=== PATIENT | male | born 1965 | race Caucasian/White ===

== ENCOUNTER 2017-09-11 21:13 | Emergency (ER) | payer OTHER ==
[~2017-09-11] VITALS: Ht 167.6 cm; Wt 105.0 kg
[~2017-09-11 21:13] MED LIST: AMLO5 PO; ASPI325 PO; ASPI81CH PO; ATOR40TA PO; Augmentin 875-1 EACH PO; Bactrim Ds Tab1 EACH PO; CHOL10002; CLIN150 PO; CLIN300 PO; Cleocin HCl300 MG PO; Clindamycin HC300 MG PO; DOCU100 PO; Florastor250 MG PO; GABA100 PO; GABA300 PO; GABA600 PO; HUMULIN; HYDR1TAB94 PO; INSDET100 SC; INSUASPI SC; INSUL100I; INSULANPEN SC; Keflex500 MG PO; LANTUS SC; LEVO750 PO; LOSA25 PO; LOSARTAN PO; LOSARTAN-HCTZ1 EAC1 PO; LOSHYD PO; LOSHYD100 PO; LOVA20; LOVA20 PO; MELO7.5 PO; METF500 PO; METF500C PO; METFORMIN PO; METO25ER PO; NAPR500 PO; OXYACE5T PO; OXYC10ER PO; SACC250C; SIMVASTATIN PO; TRAM50 PO
[2017-09-11 22:11] LABS: BASOPHILS ABSOLUTE AUTO 0.07 K/mm3 (0.00-0.23); BASOPHILS PERCENT AUTO 1 % (0-2); EOSINOPHILS ABSOLUTE AUTO 0.49 K/mm3 (0.00-0.68); EOSINOPHILS PERCENT AUTO 5 % (0-6); Hematocrit 42.7 % (37.0-53.0); Hemoglobin 14.7 g/dL (13.5-17.5); IMMATURE GRAN ABSOLUTE AUTO 0.02 K/mm3 (0.00-0.10); IMMATURE GRAN PERCENT AUTO 0 % (0-1); LYMPHOCYTES ABSOLUTE AUTO 3.77 K/mm3 (0.84-5.20); LYMPHOCYTES PERCENT AUTO 40 % (21-46); MONOCYTES ABSOLUTE AUTO 0.71 K/mm3 (0.16-1.47); MONOCYTES PERCENT AUTO 8 % (4-13); Mean Corpuscular HGB 30.7 pg (26.0-34.0); Mean Corpuscular HGB Conc 34.4 g/dL (31.5-36.5); Mean Corpuscular Volume 89 fL (80-100); Mean Platelet Volume 11.2 fL (9.1-12.4); NEUTROPHILS ABSOLUTE AUTO 4.44 K/mm3 (1.96-9.15); NEUTROPHILS PERCENT AUTO 47 % (41-73); Platelet Count 285 K/mm3 (150-400); RDW Coefficient Variation 12.1 % (11.7-14.2); RDW Standard Deviation 39.5 fL (35.1-46.3); Red Blood Cell Count 4.79 M/mm3 (4.30-5.90)
[2017-09-11 22:34] LABS: Alanine Aminotransfer (ALT/SGP 37 U/L (12-78); Albumin, Blood 3.7 g/dL (3.4-5.0); Alk Phos 105 U/L (50-136); Anion Gap 8 mmol/L (6-16); Aspartate Aminotrans (AST/SGOT 13 U/L (12-37); Bilirubin, Total 0.4 mg/dL (0.1-1.0); Blood Urea Nitrogen 18 mg/dL (8-24); Bun/Creatinine Ratio 24.4 (12.0-20.0); CO2, Blood 25 mmol/L (21-32); Calcium, Blood 8.9 mg/dL (8.5-10.1); Chloride, Blood 100 mmol/L (98-108); Creatinine, Blood 0.74 mg/dL (0.60-1.20); Globulin, Blood 3.7 g/dL (2.2-4.0); Glomerular Filtration Rate >60 (60-); Glucose, Blood 374 mg/dL (70-99); Potassium, Blood 4.2 mmol/L (3.5-5.5); Sodium, Blood 133 mmol/L (136-145); Total Protein, Blood 7.4 g/dL (6.4-8.2); Troponin I <0.015 ng/mL (0.000-0.040)
== END 2017-09-12 00:13 | disposition home or self-care (01) ==
LOC: ER 21:13
PROVIDERS: Physician Assistant
DX: R07.89 Other chest pain (principal); E11.40 Type 2 diabetes mellitus with diabetic neuropathy, unspecified; I10 Essential (primary) hypertension; E78.00 Pure hypercholesterolemia, unspecified; Z79.899 Other long term (current) drug therapy; Z79.82 Long term (current) use of aspirin; Z79.4 Long term (current) use of insulin; Z87.891 Personal history of nicotine dependence; W19.XXXA Unspecified fall, initial encounter
CPT/HCPCS: 36415; 71101; 80053; 84484; 85025; 93005; 93010; 99283

== ENCOUNTER 2017-11-08 06:06 | Day surgery (SDC) | payer OTHER ==
[~2017-11-08] VITALS: Ht 167.6 cm; Wt 109.2 kg
[2017-11-08] MEDS ORDERED: INSULANPEN IM (06:51)
[2017-11-08] MEDS ORDERED: Novolog100 UNIT/2 (06:51)
[2017-11-08] MEDS ORDERED: GLIP10 PO (06:52)
[2017-11-08] MEDS ORDERED: BASAGLAR K100 UNIT/1 (06:52)
[2017-11-08] MEDS ORDERED: LOSA25 PO (06:53)
== END 2017-11-08 09:40 | disposition home or self-care (01) ==
LOC: ORSCSDS 06:06
PROVIDERS: Podiatrist Foot & Ankle Surgery
PROC: 0L8P0ZZ Division of Left Lower Leg Tendon, Open Approach (ICD-10-PCS; principal; 2017-11-08 07:30)
DX: M67.02 Short Achilles tendon (acquired), left ankle (principal); L97.529 Non-pressure chronic ulcer of other part of left foot with unspecified severity; I10 Essential (primary) hypertension; E11.40 Type 2 diabetes mellitus with diabetic neuropathy, unspecified; Z79.4 Long term (current) use of insulin; Z79.899 Other long term (current) drug therapy
CPT/HCPCS: 82947; J0330; J0690; J2250; J2370; J2405; J3010; J7120

== ENCOUNTER 2018-09-11 16:17 | Inpatient (IN) | payer OTHER ==
[~2018-09-11] VITALS: Ht 170.2 cm; Wt 92.3 kg
[~2018-09-11 16:17] MED LIST changes: +BASAGLAR K100 UNIT/1; +GLIP10 PO; +Novolog100 UNIT/2
[2018-09-11 16:51] LABS: BASOPHILS ABSOLUTE AUTO 0.18 K/mm3 (0.00-0.23); BASOPHILS PERCENT AUTO 1 % (0-2); EOSINOPHILS PERCENT AUTO 0 % (0-6); Hematocrit 46.9 % (37.0-53.0); IMMATURE GRAN ABSOLUTE AUTO 0.39 K/mm3 (0.00-0.10); IMMATURE GRAN PERCENT AUTO 2 % (0-1); LYMPHOCYTES ABSOLUTE AUTO 2.13 K/mm3 (0.84-5.20); LYMPHOCYTES PERCENT AUTO 9 % (21-46); MONOCYTES PERCENT AUTO 6 % (4-13); Mean Corpuscular HGB 30.9 pg (26.0-34.0); Mean Corpuscular Volume 97 fL (80-100); NEUTROPHILS ABSOLUTE AUTO 18.82 K/mm3 (1.96-9.15); NEUTROPHILS PERCENT AUTO 82 % (41-73); Platelet Count 420 K/mm3 (150-400); RDW Coefficient Variation 12.4 % (11.7-14.2); RDW Standard Deviation 43.9 fL (35.1-46.3); Red Blood Cell Count 4.85 M/mm3 (4.30-5.90); White Blood Cell Count 22.92 K/mm3 (4.00-11.30)
[2018-09-11 18:05] LABS: Base Excess Venous -25.2 mmol/L; Bicarbonate Venous 8.5 mmol/L (24.0-30.0); PCO2 Venous 22.1 mmHg (38-42); PO2 Venous 110 mmHg (38-42); pH Blood Venous 7.02 (7.34-7.37)
[2018-09-11 18:19] LABS: Phosphorus, Blood 6.4 mg/dL (2.5-4.9)
[2018-09-11 18:22] LABS: Glucose, Blood 601 mg/dL (70-99)
[2018-09-11 18:42] LABS: Troponin I <0.015 ng/mL (0.000-0.040)
[2018-09-11 19:34] LABS: Alanine Aminotransfer (ALT/SGP 15 U/L (12-78); Albumin, Blood 2.8 g/dL (3.4-5.0); Albumin/Globulin Ratio 0.5 (0.8-1.8); Alk Phos 162 U/L (50-136); Anion Gap 28 mmol/L (6-16); Aspartate Aminotrans (AST/SGOT 5 U/L (12-37); Bilirubin, Total 0.5 mg/dL (0.1-1.0); Blood Urea Nitrogen 21 mg/dL (8-24); Bun/Creatinine Ratio 19.4 (12.0-20.0); CO2, Blood 5 mmol/L (21-32); Calcium, Blood 10.1 mg/dL (8.5-10.1); Chloride, Blood 92 mmol/L (98-108); Creatinine, Blood 1.08 mg/dL (0.60-1.20); Globulin, Blood 5.9 g/dL (2.2-4.0); Glomerular Filtration Rate >60 (60-); Glucose, Blood 585 mg/dL (70-99); Potassium, Blood 4.9 mmol/L (3.5-5.5); Sodium, Blood 125 mmol/L (136-145); Total Protein, Blood 8.7 g/dL (6.4-8.2)
[2018-09-11 20:14] LABS: Beta-hydroxybutyrate 89.9 mg/dL (0.2-2.8)
--- NOTE | 2018-09-11 23:17 | NUR ---
ASSUMED CARE OF PT PT TO ICU 9 AT 2052 FROM ED. REPORT RECEIVED FROM MADELEINE BAIRES. PT ALERT AND ORIENTED WITH NS RUNNING WO AND INSULIN AT 8 UNITS. PT ON ROOM AIR WITH TACHYPNEIC KUSSMAUL BREATHING. PT AFEBRILE, DENIES PAIN AT THIS TIME. PT HAS HAD BOUTS OF NAUSEA TREATED BY FUNMI KNIGHT. PT STATES THAT HE HAS BEEN DIABETIC SINCE "MAYBE 19 YEARS OLD" BUT THAT THIS IS HIS FIRST EXPERIENCE WITH DKA. PT IS POOR HISTORIAN AND APPEARS DEVELOPMENTALLY DELAYED. PT STATES THAT HE LIVES IN A "ROOM BEHIND A GARAGE" AND THAT "HE STAYS WARM WITH AN ELECTRIC BLANKET" BUT THAT HE CAN'T HAVE THE ELECTRIC BLANKET AND SPACE HEATER ON AT THE SAME TIME OR "THE BREAKER TURNS OFF". PT STATES THAT HE USES A MICROWAVE TO COOK HIS FOOD AND THAT THE GARAGE HAS A TOILET/SHOWER. PT STATES HE "ISN'T COMPLAINING BECAUSE I USED TO LIVE IN MY TRUCK". FIRE OBSERVER CONSULT PUT IN. SEE FULL ADMISSION ASSESSMENT.
[2018-09-11 23:35] LABS: Anion Gap 20 mmol/L (6-16); Blood Urea Nitrogen 20 mg/dL (8-24); Bun/Creatinine Ratio 28.2 (12.0-20.0); CO2, Blood 12 mmol/L (21-32); Calcium, Blood 8.5 mg/dL (8.5-10.1); Chloride, Blood 104 mmol/L (98-108); Creatinine, Blood 0.71 mg/dL (0.60-1.20); Glomerular Filtration Rate >60 (60-); Glucose, Blood 275 mg/dL (70-99); Sodium, Blood 136 mmol/L (136-145)
[2018-09-12 03:44] LABS: BASOPHILS ABSOLUTE AUTO 0.06 K/mm3 (0.00-0.23); BASOPHILS PERCENT AUTO 0 % (0-2); EOSINOPHILS ABSOLUTE AUTO 0.01 K/mm3 (0.00-0.68); EOSINOPHILS PERCENT AUTO 0 % (0-6); Hematocrit 35.4 % (37.0-53.0); Hemoglobin 11.9 g/dL (13.5-17.5); IMMATURE GRAN ABSOLUTE AUTO 0.32 K/mm3 (0.00-0.10); IMMATURE GRAN PERCENT AUTO 2 % (0-1); LYMPHOCYTES ABSOLUTE AUTO 1.92 K/mm3 (0.84-5.20); LYMPHOCYTES PERCENT AUTO 10 % (21-46); MONOCYTES ABSOLUTE AUTO 1.34 K/mm3 (0.16-1.47); MONOCYTES PERCENT AUTO 7 % (4-13); Mean Corpuscular HGB Conc 33.6 g/dL (31.5-36.5); Mean Corpuscular Volume 92 fL (80-100); Mean Platelet Volume 10.1 fL (9.1-12.4); NEUTROPHILS ABSOLUTE AUTO 15.67 K/mm3 (1.96-9.15); NEUTROPHILS PERCENT AUTO 81 % (41-73); Platelet Count 372 K/mm3 (150-400); RDW Coefficient Variation 11.9 % (11.7-14.2); RDW Standard Deviation 40.1 fL (35.1-46.3); Red Blood Cell Count 3.84 M/mm3 (4.30-5.90); White Blood Cell Count 19.32 K/mm3 (4.00-11.30)
[2018-09-12 04:02] LABS: Anion Gap 14 mmol/L (6-16); Blood Urea Nitrogen 16 mg/dL (8-24); Bun/Creatinine Ratio 23.4 (12.0-20.0); CO2, Blood 14 mmol/L (21-32); Calcium, Blood 8.4 mg/dL (8.5-10.1); Chloride, Blood 105 mmol/L (98-108); Creatinine, Blood 0.69 mg/dL (0.60-1.20); Glomerular Filtration Rate >60 (60-); Glucose, Blood 269 mg/dL (70-99); Potassium, Blood 3.9 mmol/L (3.5-5.5); Sodium, Blood 133 mmol/L (136-145)
--- NOTE | 2018-09-12 06:06 | NUR ---
SHIFT SUMMARY PT RESTING QUIETLY ALL NIGHT. PT ON D5 /2 @200 ML/HR SINCE 0100. INSULIN RUNNING @5 UNITS. ANION GAP IS CLOSED AND 0530 CBG WAS 207. PT IS ALERT/ORIENTED AND COOPERATIVE. PT HAS HAD ZERO URINARY OUTPUT FOR ME SINCE ARRIVAL. PT REPORTS THAT HE URINATED IN THE EMERGENCY ROOM PRIOR TO TRANSFER. PT IS AFEBRILE AND VSS. WILL REPORT TO DAYSHIFT NURSE.
[2018-09-12 09:27] LABS: Anion Gap 12 mmol/L (6-16); Blood Urea Nitrogen 12 mg/dL (8-24); Bun/Creatinine Ratio 20.5 (12.0-20.0); CO2, Blood 17 mmol/L (21-32); Calcium, Blood 8.5 mg/dL (8.5-10.1); Chloride, Blood 107 mmol/L (98-108); Creatinine, Blood 0.59 mg/dL (0.60-1.20); Glomerular Filtration Rate >60 (60-); Glucose, Blood 211 mg/dL (70-99); Potassium, Blood 3.6 mmol/L (3.5-5.5); Sodium, Blood 136 mmol/L (136-145)
[2018-09-12 13:11] LABS: Anion Gap 10 mmol/L (6-16); Blood Urea Nitrogen 11 mg/dL (8-24); Bun/Creatinine Ratio 18.2 (12.0-20.0); CO2, Blood 20 mmol/L (21-32); Calcium, Blood 8.8 mg/dL (8.5-10.1); Chloride, Blood 107 mmol/L (98-108); Glomerular Filtration Rate >60 (60-); Glucose, Blood 187 mg/dL (70-99); Potassium, Blood 3.6 mmol/L (3.5-5.5); Sodium, Blood 137 mmol/L (136-145)
--- NOTE | 2018-09-12 13:17 | NUR ---
pt has attempted TO EAT X2 AND INCICATED HE IS HAVING PROBLEMS SWALLOWING AND THIS IS CONSISTANT WITH PROBLEMS HE HE HAS BEEN HAVING FOR THE LAST 2-3 WEEK. PT EXPRESSES FOOD FEELING LIKE IT IS "STUCK" IN CHEST AND NOT GOING DOWN. WILL CHANGE TO FULL LIQUID DIET AND FOLLOW.
--- NOTE | 2018-09-12 14:27 | NUR ---
PT C/O BACK SORENESS/PAIN THAT WAS RELIEVED BY WARM BLANKET. VSS. CBG NOTED AND LABS IMPROVING. PT VISITING WITH FAMILY AND FRIENDS.
--- NOTE | 2018-09-12 16:30 | NUR ---
PT AWAKE, ALERT, COOPERATIVE. ASSISTED TO REPOSITION IN BED, MOVES SELF, NEEDS ASSISTANCE WITH LINES. SINUS TACH, RESPIRATIONS UNLABORED. DENIES PAIN. DOES C/O SENSATION WITH SWALLOWING THAT IS UNCOMFORTABLE. STATES HAS BEEN A PROBLEM FOR FEW WEEKS. STATES HAVING THE MOST TROUBLE WITH SOLID FOOD. TAKING SIPS CLEAR LIQUIDS OK. DENIES NAUSEA, ABDOMEN SOFT. IV D51/2 NS AT 100 CC/HR, INSULIN GTT AT 5 UNITS/HR. PIV X 2 INTACT. ANASARCA, WORSE LEFT HAND, BLOOD RETURN PRESENT LEFT SALINE LOCK, SITE NONTENDER. SKIN POOR CONDITION.
[2018-09-12 16:57] LABS: Anion Gap 11 mmol/L (6-16); Blood Urea Nitrogen 13 mg/dL (8-24); Bun/Creatinine Ratio 17.9 (12.0-20.0); CO2, Blood 20 mmol/L (21-32); Calcium, Blood 8.5 mg/dL (8.5-10.1); Chloride, Blood 105 mmol/L (98-108); Creatinine, Blood 0.73 mg/dL (0.60-1.20); Glomerular Filtration Rate >60 (60-); Glucose, Blood 213 mg/dL (70-99); Potassium, Blood 3.6 mmol/L (3.5-5.5); Sodium, Blood 136 mmol/L (136-145)
--- NOTE | 2018-09-12 18:24 | NUR ---
NOTIFIED DR. ARRIETA OF BLOOD WORK, ORDERS TO D/C INSULIN GTT AFTER DOSE OF LANTUS. MAY TRANSFER TO MEDICAL. PT HAD FULL LIQUIDS FOR DINNER, STATES STILL HAS SENSATION THAT FOOD IS "BLOCKED" IN CHEST WHEN HE SWALLOWS BUT STATES LIQUID MUCH EASIER THAN SOLIDS. NO DISTRESS-UPDATE TO DR. ARRIETA.
--- NOTE | 2018-09-12 18:45 | NUR ---
ASSUMED CARE PT ALERT AND ORIENTED. PT CURRENTLY ON 6 UNITS INSULIN GTT WITH D5 1/2 @100 ML. PER OFF GOING NURSE ETTA HERNANDES PT TO RECEIVED LANTUS AND HUMALOG BROWN. INSULIN GTT AND D5 W 1/2 TO BE TURNED OFF 30 MINS AFTER LANTUS/HUMALOG ADMINISTRATION PER DR. ARRIETA. PT'S BLOOD GLUCOSE HAS BEEN AROUND 250 SINCE ARRIVAL TO UNIT. PT HAS BEEN TOLERATING LIQUID DIET WELL WITH NO C/O N/V. PT STATES THAT HE HAS "HAD DIFFICULTY SWALLOWING" TODAY. PT STATES HE WAS ABLE TO "EAT 3 BISCUITS ON SUNDAY WITHOUT DIFFICULTY". DR ARRIETA CONSULTED AND WILL FOLLOW UP 09/13. SEE FULL SHIFT ASSESSMENT.
[2018-09-12 21:37] LABS: Anion Gap 13 mmol/L (6-16); Blood Urea Nitrogen 13 mg/dL (8-24); Bun/Creatinine Ratio 18.8 (12.0-20.0); CO2, Blood 18 mmol/L (21-32); Calcium, Blood 8.2 mg/dL (8.5-10.1); Chloride, Blood 106 mmol/L (98-108); Creatinine, Blood 0.69 mg/dL (0.60-1.20); Glomerular Filtration Rate >60 (60-); Glucose, Blood 265 mg/dL (70-99); Potassium, Blood 3.9 mmol/L (3.5-5.5); Sodium, Blood 137 mmol/L (136-145)
--- NOTE | 2018-09-12 21:47 | NUR ---
PT TRANSFER REPORT GIVEN AND PT TRANSFERRED TO MEDICAL FLOOR 330
--- NOTE | 2018-09-12 22:01 | NUR ---
PT TRANSFERED FROM ICU 9 TO 330. VITALS STABLE ON ARRIVAL. PT SETTLED IN THE ROOM. HE DENIES ANY FURTHER NEEDS AT THIS TIME.
--- NOTE | 2018-09-13 04:34 | NUR ---
SHIFT SUMMARY PT WAS A NEW TRANSFER FROM ICU DURING THE NIGHT, ARRIVING ON THE FLOOR AT 2135. HE IS A 52 Y/O MALE, A&O X 4, AND A SBA IN THE ROOM WITH A CANE. PT WAS ORIGINALLY ADMITTED FOR DKA. HE DENIED ANY COMPLAINTS OF PAIN, NAUSEA OR SOB, AND SLEPT WELL THROUGH THE NIGHT. VITAL SIGNS REMAINED STABLE. NO ACUTE CHANGES IN PT CONDITION NOTED. WILL CONTINUE TO MONITOR AND TREAT PER EMAR UNTIL HAND OFF TO DAY SHIFT.
--- NOTE | 2018-09-13 11:21 | NUR ---
R FOOT BROUGHT UP TO DR. ARRIETA THE REDNESS & WARMTH ON THE R FOOT WAS BROUGHT TO THE ATTENTION TO DR. ARRIETA. THE ESCHAR SPOT ON THE SIDE OF THE R FOOT WAS ALSO SHOW TO DR. PT HAS HAD ELEVATED TEMP AND WBC COUNT. INCREASE IN BLOOD SUGARS AND DISCONTINUATION OF LANTUS WAS ALSO BROUGHT UP. DR. ARRIETA TO REVIEW CHART & PLACE ORDERS NEEDED.
--- NOTE | 2018-09-13 17:14 | NUR ---
SHIFT SUMMARY PT STARTED ON ROCEPHIN THIS EVENING FOR THE CELLULITIS IN R FOOT. PT CONTINUES TO HAVE BLOOD SUGARS IN THE HIGH 200S-300S. BID LANTUS PEN STARTED TODAY. PT HAS HAD A FEVER OF THIS SHIFT. CURRENTLY THE PT IS AT 100.4 F. EDUCATED THAT THE PT IS LIKELY FEELING COLD BECAUSE OF THE FEVER. PT STATES THAT THE PAINFUL SWALLOWING HE COMPLAINED OF THIS MORNING IS "GETTING BETTER". PT HAS BEEN TACHY THIS SHIFT. PULSE RATE IN THE 100S. THIS HAS BEEN A NORMAL TREND FOR THE PT DURING THIS STAY HOWEVER. NO OTHER CHANGES IN ASSESSMENT AT THIS TIME. WILL CONTINUE TO MONITOR UNTIL TURNOVER IS COMPLETE.
[2018-09-14 05:37] LABS: BASOPHILS PERCENT AUTO 1 % (0-2); EOSINOPHILS ABSOLUTE AUTO 0.02 K/mm3 (0.00-0.68); EOSINOPHILS PERCENT AUTO 0 % (0-6); Hematocrit 34.7 % (37.0-53.0); Hemoglobin 11.8 g/dL (13.5-17.5); IMMATURE GRAN ABSOLUTE AUTO 0.17 K/mm3 (0.00-0.10); IMMATURE GRAN PERCENT AUTO 1 % (0-1); LYMPHOCYTES PERCENT AUTO 12 % (21-46); MONOCYTES ABSOLUTE AUTO 1.91 K/mm3 (0.16-1.47); MONOCYTES PERCENT AUTO 9 % (4-13); Mean Corpuscular HGB 30.7 pg (26.0-34.0); Mean Corpuscular Volume 90 fL (80-100); Mean Platelet Volume 10.5 fL (9.1-12.4); NEUTROPHILS ABSOLUTE AUTO 16.73 K/mm3 (1.96-9.15); NEUTROPHILS PERCENT AUTO 78 % (41-73); Platelet Count 342 K/mm3 (150-400); RDW Coefficient Variation 12.1 % (11.7-14.2); RDW Standard Deviation 39.7 fL (35.1-46.3); Red Blood Cell Count 3.84 M/mm3 (4.30-5.90); White Blood Cell Count 21.53 K/mm3 (4.00-11.30)
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
[2018-09-14 06:07] LABS: Alanine Aminotransfer (ALT/SGP 8 U/L (12-78); Albumin/Globulin Ratio 0.4 (0.8-1.8); Alk Phos 109 U/L (50-136); Anion Gap 13 mmol/L (6-16); Aspartate Aminotrans (AST/SGOT 10 U/L (12-37); Bilirubin, Total 0.8 mg/dL (0.1-1.0); Blood Urea Nitrogen 10 mg/dL (8-24); Bun/Creatinine Ratio 15.3 (12.0-20.0); CO2, Blood 21 mmol/L (21-32); Calcium, Blood 8.7 mg/dL (8.5-10.1); Chloride, Blood 102 mmol/L (98-108); Creatinine, Blood 0.65 mg/dL (0.60-1.20); Globulin, Blood 4.6 g/dL (2.2-4.0); Glomerular Filtration Rate >60 (60-); Glucose, Blood 244 mg/dL (70-99); Potassium, Blood 3.7 mmol/L (3.5-5.5); Sodium, Blood 136 mmol/L (136-145); Total Protein, Blood 6.6 g/dL (6.4-8.2)
--- NOTE | 2018-09-14 11:59 | NUR ---
NOTIFIED DR. ARRIETA PT STILL REPORTING PAIN AFTER EATING AND THAT PT IS REFUSING TO EAT FULL LIQUID DIET. DR. ARRIETA SAID OK TO ADVANCE PT'S DIET. NO OTHER SIGNIFICANT CHANGES THIS SHIFT.
--- NOTE | 2018-09-14 14:10 | NUR ---
PAGED DR. FLORES FOR A SECOND TIME FOR CONSULT FOR PT 09/14/18 AT 1400.
--- NOTE | 2018-09-14 16:25 | NUR ---
SHIFT SUMMARY- PT C/O STOMACH PAIN THAT OCCURS AFTER EATING. DR. BALDERAS. PT ADVANCED TO SOFT BITE SIZE DIET. GI CONSULTED. DR. FLORES IN TO SEE PT THIS PM. PT TO BE NPO AFTER MIDNIGHT FOR EGD TOMMORROW AM. ATTEMPTED TO CALL PODIATRY CONSULT IN BUT OFFICE IS NOT OPEN ON WEEKENDS. WILL PASS ON TO PM NURSE TO NOTIFY AM NURSE ON SUNDAY. TEMP 101.0 THIS PM. TYLENOL GIVEN PER EMAR. WILL MONITOR TEMP. 1 ASSIST TO THE BATHROOM. DENIES N/V. DENIES SOB. RESP E/U ON RA. NO OTHER SIGNIFICANT CHANGES THIS SHIFT.
[2018-09-15 05:01] LABS: BASOPHILS ABSOLUTE AUTO 0.11 K/mm3 (0.00-0.23); BASOPHILS PERCENT AUTO 0 % (0-2); EOSINOPHILS ABSOLUTE AUTO 0.09 K/mm3 (0.00-0.68); EOSINOPHILS PERCENT AUTO 0 % (0-6); Hematocrit 37.2 % (37.0-53.0); Hemoglobin 12.3 g/dL (13.5-17.5); IMMATURE GRAN ABSOLUTE AUTO 0.28 K/mm3 (0.00-0.10); IMMATURE GRAN PERCENT AUTO 1 % (0-1); LYMPHOCYTES ABSOLUTE AUTO 3.09 K/mm3 (0.84-5.20); LYMPHOCYTES PERCENT AUTO 11 % (21-46); MONOCYTES ABSOLUTE AUTO 2.24 K/mm3 (0.16-1.47); MONOCYTES PERCENT AUTO 8 % (4-13); Mean Corpuscular HGB 30.8 pg (26.0-34.0); Mean Corpuscular HGB Conc 33.1 g/dL (31.5-36.5); Mean Corpuscular Volume 93 fL (80-100); NEUTROPHILS ABSOLUTE AUTO 21.28 K/mm3 (1.96-9.15); NEUTROPHILS PERCENT AUTO 79 % (41-73); Platelet Count 344 K/mm3 (150-400); RDW Coefficient Variation 12.1 % (11.7-14.2); RDW Standard Deviation 41.5 fL (35.1-46.3); White Blood Cell Count 27.09 K/mm3 (4.00-11.30)
[2018-09-15 05:42] LABS: Alanine Aminotransfer (ALT/SGP 9 U/L (12-78); Albumin, Blood 1.8 g/dL (3.4-5.0); Albumin/Globulin Ratio 0.3 (0.8-1.8); Alk Phos 119 U/L (50-136); Anion Gap 15 mmol/L (6-16); Aspartate Aminotrans (AST/SGOT 18 U/L (12-37); Bilirubin, Total 0.5 mg/dL (0.1-1.0); Blood Urea Nitrogen 9 mg/dL (8-24); Bun/Creatinine Ratio 15.1 (12.0-20.0); CO2, Blood 17 mmol/L (21-32); Calcium, Blood 8.6 mg/dL (8.5-10.1); Chloride, Blood 103 mmol/L (98-108); Globulin, Blood 5.4 g/dL (2.2-4.0); Glomerular Filtration Rate >60 (60-); Glucose, Blood 229 mg/dL (70-99); Potassium, Blood 3.8 mmol/L (3.5-5.5); Sodium, Blood 135 mmol/L (136-145); Total Protein, Blood 7.2 g/dL (6.4-8.2)
--- NOTE | 2018-09-15 07:35 | NUR ---
09/15/18 0620 STATES NAUSEA BETTER NOW. HAD EMESIS EARLIER AND RN NOTIFIED MD FOR MED NEEDED. VITALS STABLE. SLEPT ON AND OFF. NPO SINCE MIDNIGHT FOR PROBABLE EDG.
--- NOTE | 2018-09-15 13:12 | NUR ---
09/15/18 1312 Jacky Shultz PATIENT DETERMINED TO BE ASA APPROPRIATE FOR PROPOFOL SEDATION PRIOR TO START OF PROCEDURE BY . 3-LEAD EKG REVIEWED WITH PHYSICIAN PRIOR TO START OF PROCEDURE.PATIENT CONFIRMS NPO STATUS AND AGREES WITH SCHEDULED PROCEDURE.History, Chart, Medications and Allergies reviewed before start of procedure.MONITOR INTACT WITH CONTINUOUS PULSE OXIMETRY AND INTERMITTENT BP.O2 VIA N/C INTACT THROUGHOUT SEDATION/PROCEDURE.Bite Block Placed
--- NOTE | 2018-09-15 15:54 | NUR ---
SPOKE TO PT AND OBTAINED PERMISSION TO PROVIDE CARE SN UNDER SUPERVISION OF RN. PT GRANTED ACCESS TO MEDICAL FILES
--- NOTE | 2018-09-15 18:40 | NUR ---
SHIFT SUMMARY. A&OX4, SOME FORGETFULLNESS. INDEPENDNENT IN ROOM WITH CANE WHEN SALINE LOCKED. ENDOSCOPY COMPLETED THIS AFTERNOON. ATTEMPTED TO CALL PODIATRY CALL SERVICE AND FOUND THAT THERE IS NO PODIATRY YARN POLISHING MACHINE OPERATOR TODAY. THE CALL LIST SHOWS NO PODIATRY AVAILABLE FOR THE REST OF THE MONTH. WBC CONTINUES TO ELEVATE. DR. ARRIETA AWARE. PT STARTED ON CLEAR LIQUID DIET. NO OTHER CHANGES.
--- NOTE | 2018-09-16 06:17 | NUR ---
SHIFT SUMMARY PT ADMITTED FOR DKA. FULL CODE. CLEAR LIQUID DIET ADVANCE TOLLERATED. 00242 CALS. ASP PRECUATIONS. CBG AT AND HS. LOVENOX. INDEPENDENT IN ROOM WITH CANE. PT PRESENTS WITH SOME MILD DEVELOPMENTAL DELAYS. THE PT NAVAS HAVE TOE AMPUTATIONS TO BOTH FEET THAT COULD IMPAIR BALANCE. HOWEVER, PT DOES APPEAR STABLE DURING AMBULATION TO AND FROM THE BR. THE PT APPARENTLY LIVES ALONE AND DOES NOT LIKE TO TAKE INSULIN AT HOME. THE PT HAS A WOUND TO R FOOT THAT THE PT REPORTED HE DID NOT KNOW ABOUT UNTIL COMING INTO THE HOSPITAL. TAKES MEDICATIONS WHOLE. 2 IVS TO L FA. THE PT HAD EGD YESTERDAY, PHOTOS ARE PLACED IN FROM OF CHART AND DO APPEAR TO BE ABNORMAL. PT STATED THAT IT KIMBALL HIS STOMACH WHEN HE EATS. THE PT DID APPEAR TO SLEEP COMFORTABLY FOR MOST OF THE NIGHT. NO APPARENT SIGNS OF ACUTE DISTRESS. ABLE TO MAKE NEEDS KNOWN AND CALL LIGHT IN REACH.
--- NOTE | 2018-09-16 08:33 | NUR ---
ADMINISTERED INSULIN UNDER SUPERVISION OF MADELEINE FONSECA AND SECOND CHECK BY MADELEINE CLARK. PT DENIES PAIN AND DID NOT WANT TYLENOL. PT ALSO DENIED STOOL SOFTENER, REPORTING HE HAD A BM THE EVENING OF 09/15/18 AND IS CONCERNED IF HE TAKES THEM THE WILL HAVE AN "ACCIDENT". PT IS A&O X3 AND COOPERATIVE. FULL ASSESSMENT COMPLETED AND DOCUMENTED, WILL BE REVIWED BY MADELEINE FONSECA TO CONFIRM FINDINGS. PT EDUCATION COMPLETED ON DIABETIC DIET AND INSULIN ADMINISTRATION. PT REQUESTED FOR DIET TO BE ADVANCED BUT DID NOT WANT SOFT FOODS BECAUSE HE DOESNT LIKE THEM. OBSERVED MADELEINE FONSECA ADVANCE DIET TOLERATED.
--- NOTE | 2018-09-16 10:37 | NUR ---
SHIFT ASSESSMENT I CONCUR WITH THE SHIFT ASSESSMENT DONE BY STUDENT RN
[2018-09-16 12:38] LABS: BASOPHILS ABSOLUTE AUTO 0.06 K/mm3 (0.00-0.23); BASOPHILS PERCENT AUTO 0 % (0-2); EOSINOPHILS ABSOLUTE AUTO 0.24 K/mm3 (0.00-0.68); EOSINOPHILS PERCENT AUTO 1 % (0-6); Hematocrit 34.3 % (37.0-53.0); Hemoglobin 11.6 g/dL (13.5-17.5); IMMATURE GRAN ABSOLUTE AUTO 0.23 K/mm3 (0.00-0.10); IMMATURE GRAN PERCENT AUTO 1 % (0-1); LYMPHOCYTES ABSOLUTE AUTO 2.55 K/mm3 (0.84-5.20); LYMPHOCYTES PERCENT AUTO 12 % (21-46); MONOCYTES ABSOLUTE AUTO 1.72 K/mm3 (0.16-1.47); MONOCYTES PERCENT AUTO 8 % (4-13); Mean Corpuscular HGB 31.1 pg (26.0-34.0); Mean Corpuscular HGB Conc 33.8 g/dL (31.5-36.5); Mean Corpuscular Volume 92 fL (80-100); Mean Platelet Volume 9.8 fL (9.1-12.4); NEUTROPHILS ABSOLUTE AUTO 15.79 K/mm3 (1.96-9.15); NEUTROPHILS PERCENT AUTO 77 % (41-73); Platelet Count 367 K/mm3 (150-400); RDW Coefficient Variation 12.3 % (11.7-14.2); RDW Standard Deviation 41.4 fL (35.1-46.3); Red Blood Cell Count 3.73 M/mm3 (4.30-5.90); White Blood Cell Count 20.59 K/mm3 (4.00-11.30)
[2018-09-16 13:06] LABS: Alanine Aminotransfer (ALT/SGP 19 U/L (12-78); Albumin, Blood 1.8 g/dL (3.4-5.0); Albumin/Globulin Ratio 0.3 (0.8-1.8); Alk Phos 122 U/L (50-136); Anion Gap 8 mmol/L (6-16); Aspartate Aminotrans (AST/SGOT 22 U/L (12-37); Bilirubin, Total 0.5 mg/dL (0.1-1.0); Blood Urea Nitrogen 7 mg/dL (8-24); Bun/Creatinine Ratio 11.6 (12.0-20.0); CO2, Blood 28 mmol/L (21-32); Calcium, Blood 8.6 mg/dL (8.5-10.1); Chloride, Blood 97 mmol/L (98-108); Creatinine, Blood 0.61 mg/dL (0.60-1.20); Globulin, Blood 5.3 g/dL (2.2-4.0); Glomerular Filtration Rate >60 (60-); Glucose, Blood 250 mg/dL (70-99); Potassium, Blood 3.2 mmol/L (3.5-5.5); Sodium, Blood 133 mmol/L (136-145); Total Protein, Blood 7.1 g/dL (6.4-8.2)
--- NOTE | 2018-09-16 18:17 | NUR ---
SUMMARY PT SITTING UP IN BED, JUST FINISHED EATING HIS DINNER, PT HAS BEEN INDEPENDENT IN THE ROOM, PT IS COOPERATIVE WITH CARE, PT'S FEET HAVE BEEN COVERED IN CREAM AND WRAPPED IN GAUZE PER HIS REQUEST, THERE IS AN OPEN AREA TO THE R FOOT ON THE BOTTOM, DR ARRIETA IS AWARE, ANTIBIOTICS HAVE BEEN CHANGED, PT HAD SOME VISITORS IN TO SEE HIM, VSS, NO ACUTE CHANGES, WILL CONT TO MONITOR
--- NOTE | 2018-09-17 07:24 | NUR ---
09/17/18 0630 SLIGHT FEVER THIS SHIFT BUT OTHERWISE VITALS STABLE. DENIES ANY DISCOMFORT. UNEVENTFUL NIGHT.
--- NOTE | 2018-09-17 15:29 | NUR ---
Patient gave student nurse consent to provide care on 09/18/2018.
[2018-09-17 16:36] LABS: Vancomycin, Trough 9.2 ug/mL (5.0-10.0)
--- NOTE | 2018-09-17 17:47 | NUR ---
SUMMARY PT AWAKE IN BED SITTING UP EATING HIS DINNER, PT HAS BEEN PLEASANT AND COOPERATIVE WITH CARE, REFUSED TO TAKE A SHOWER THAT WAS OFFERED SEVERAL TIMES TODAY, PT'S R FOOT DRESSING HAS BEEN CHANGED, THE ESCHAR TO THE OUTER ASPECT OF THE FOOT IS COMING OFF, AREA PACKED WITH CALCIUM ALGINATE AND HYDROGEL AND COVERED WITH A FOAM DRESSING, THE OPEN AREA THE INNER MIDDLE AREA OF THE PLANTAR SURFACE HAS BEEN CLEANSED WITH WOUND CLEANSER AND COVERED WITH CALCIUM ALGINATE AND A FOAM DRESSING, THE ENTIRE AREA APPEARS REDDENED, PT PRACHI WELL AND DENIES PAIN, VSS, NO ACUTE CHANGES, WILL CONT TO MONITOR
--- NOTE | 2018-09-18 04:44 | NUR ---
SHIFT SUMMARY PT HAS RESTED OFF AND ON T/O SHIFT. PT HAD 103 TEMPERATURE AT THE BEGINNING OF THE SHIFT THAT RESPONDED WELL TO TYLENOL AND NON PHARM INTERVENTIONS. PT HAS BEEN INDEPENDENT IN THE ROOM. PT REPORTS PAIN TO HIS RIGHT FOOT BUT DECLINES ANYTHING FOR PAIN WHEN OFFERED. STATING " I RATHER NOT TAKE THAT STUFF". PT ENCOURAGED TO CALL IF HE CHANGED HIS MIND. PT TOLERATING PO INTAKE BUT STATES PAINFUL DUE TO ULCERS. CARAFATE GIVEN PER EMAR ORDERS. IV ABX INFUSED. DRESSING TO RIGHT FOOT CHANGED BY SHEFALI RN. BG ABOVE 300 MANAGED PER EMAR. PT A/OX4, PLESANT WITH CARE. MINIMAL NEEDS T/O SHIFT. STILL AWAITING PODIATRY CONSULT AT THIS TIME. WILL CONTINUE TO MONITOR AND REPORT TO ONCOMING RN.
[2018-09-18 05:23] LABS: BASOPHILS ABSOLUTE AUTO 0.08 K/mm3 (0.00-0.23); BASOPHILS PERCENT AUTO 0 % (0-2); EOSINOPHILS ABSOLUTE AUTO 0.21 K/mm3 (0.00-0.68); EOSINOPHILS PERCENT AUTO 1 % (0-6); Hematocrit 32.5 % (37.0-53.0); Hemoglobin 10.5 g/dL (13.5-17.5); IMMATURE GRAN ABSOLUTE AUTO 0.14 K/mm3 (0.00-0.10); IMMATURE GRAN PERCENT AUTO 1 % (0-1); LYMPHOCYTES ABSOLUTE AUTO 2.49 K/mm3 (0.84-5.20); LYMPHOCYTES PERCENT AUTO 11 % (21-46); MONOCYTES ABSOLUTE AUTO 1.87 K/mm3 (0.16-1.47); MONOCYTES PERCENT AUTO 8 % (4-13); Mean Corpuscular HGB 30.3 pg (26.0-34.0); Mean Corpuscular HGB Conc 32.3 g/dL (31.5-36.5); Mean Corpuscular Volume 94 fL (80-100); Mean Platelet Volume 9.9 fL (9.1-12.4); NEUTROPHILS ABSOLUTE AUTO 17.48 K/mm3 (1.96-9.15); NEUTROPHILS PERCENT AUTO 79 % (41-73); Platelet Count 372 K/mm3 (150-400); RDW Coefficient Variation 12.1 % (11.7-14.2); RDW Standard Deviation 41.9 fL (35.1-46.3); Red Blood Cell Count 3.47 M/mm3 (4.30-5.90); White Blood Cell Count 22.27 K/mm3 (4.00-11.30)
[2018-09-18 06:06] LABS: Albumin, Blood 1.4 g/dL (3.4-5.0); Anion Gap 11 mmol/L (6-16); Blood Urea Nitrogen 10 mg/dL (8-24); Bun/Creatinine Ratio 15.4 (12.0-20.0); CO2, Blood 25 mmol/L (21-32); Calcium, Blood 7.5 mg/dL (8.5-10.1); Chloride, Blood 99 mmol/L (98-108); Creatinine, Blood 0.65 mg/dL (0.60-1.20); Glomerular Filtration Rate >60 (60-); Glucose, Blood 241 mg/dL (70-99); Phosphorus, Blood 3.1 mg/dL (2.5-4.9); Potassium, Blood 3.4 mmol/L (3.5-5.5); Sodium, Blood 135 mmol/L (136-145)
--- NOTE | 2018-09-18 14:08 | NUR ---
Patient gave permission for Ivis Pozo to provide care on 09/19/18.
[2018-09-18 17:36] LABS: Vancomycin, Trough 11.4 ug/mL (5.0-10.0)
--- NOTE | 2018-09-18 17:55 | NUR ---
SHIFT SUMMARY PATIENT HAS HAD NO ACUTE CHANGES. CONSULT PLACED TO SURGERY FOR R FOOT. DR. PICKARD VIEWED WOUND. DRESSING APPLIED. MEDICATIONS GIVEN PER EMAR. STATES HIS THROAT HAS LESS DISCOMFORT. MEDICATED WITH TYLENOL FOR FEVER.
--- NOTE | 2018-09-19 04:47 | NUR ---
SHIFT SUMMARY A/O, ABLE TO MAKE NEEDS KNOWN. COOPERATIVE WITH CARE. CALLS AND ANSWERS QUESTIONS APPROPRIATELY. NO C/O PAIN/DISCOMFORT. APPEARED TO REST MUCH OF SHIFT. SO NAUSEA NOTED THIS AM; MEDICATED PER EMAR. VSS/AFEBRILE. ABX ADMINISTERED WITHOUT COMPLICATION. NO OTHER ACUTE CHANGES NOTED OVERNIGHT. BED IN LOWEST POSITION. CALL LIGHT AND BELONGINGS WITHIN REACH. WCTM. REPORT TO ONCOMING RN.
[2018-09-19 09:18] LABS: BASOPHILS ABSOLUTE AUTO 0.05 K/mm3 (0.00-0.23); BASOPHILS PERCENT AUTO 0 % (0-2); EOSINOPHILS ABSOLUTE AUTO 0.24 K/mm3 (0.00-0.68); EOSINOPHILS PERCENT AUTO 1 % (0-6); Hematocrit 30.5 % (37.0-53.0); IMMATURE GRAN ABSOLUTE AUTO 0.12 K/mm3 (0.00-0.10); IMMATURE GRAN PERCENT AUTO 1 % (0-1); LYMPHOCYTES ABSOLUTE AUTO 2.18 K/mm3 (0.84-5.20); LYMPHOCYTES PERCENT AUTO 10 % (21-46); MONOCYTES PERCENT AUTO 7 % (4-13); Mean Corpuscular HGB 30.2 pg (26.0-34.0); Mean Corpuscular HGB Conc 32.8 g/dL (31.5-36.5); Mean Corpuscular Volume 92 fL (80-100); Mean Platelet Volume 9.8 fL (9.1-12.4); NEUTROPHILS ABSOLUTE AUTO 17.43 K/mm3 (1.96-9.15); NEUTROPHILS PERCENT AUTO 81 % (41-73); Platelet Count 395 K/mm3 (150-400); RDW Coefficient Variation 12.1 % (11.7-14.2); RDW Standard Deviation 41.1 fL (35.1-46.3); Red Blood Cell Count 3.31 M/mm3 (4.30-5.90); White Blood Cell Count 21.62 K/mm3 (4.00-11.30)
[2018-09-19 09:33] LABS: Albumin, Blood 1.5 g/dL (3.4-5.0); Anion Gap 7 mmol/L (6-16); Blood Urea Nitrogen 8 mg/dL (8-24); Bun/Creatinine Ratio 11.4 (12.0-20.0); CO2, Blood 30 mmol/L (21-32); Calcium, Blood 8.1 mg/dL (8.5-10.1); Chloride, Blood 95 mmol/L (98-108); Glomerular Filtration Rate >60 (60-); Glucose, Blood 241 mg/dL (70-99); Phosphorus, Blood 2.9 mg/dL (2.5-4.9); Potassium, Blood 3.3 mmol/L (3.5-5.5); Sodium, Blood 132 mmol/L (136-145)
--- NOTE | 2018-09-19 19:16 | NUR ---
shift summary patient is scheduled for surgery tomorrow. informed of npo. dressings changed multiple times today to keep c/d/i. he is able to make his needs known. understanding of surgery and eager to have procedure done.
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
[2018-09-20 05:12] LABS: BASOPHILS ABSOLUTE AUTO 0.05 K/mm3 (0.00-0.23); BASOPHILS PERCENT AUTO 0 % (0-2); EOSINOPHILS ABSOLUTE AUTO 0.22 K/mm3 (0.00-0.68); EOSINOPHILS PERCENT AUTO 1 % (0-6); Hematocrit 33.4 % (37.0-53.0); Hemoglobin 10.9 g/dL (13.5-17.5); IMMATURE GRAN ABSOLUTE AUTO 0.19 K/mm3 (0.00-0.10); IMMATURE GRAN PERCENT AUTO 1 % (0-1); LYMPHOCYTES ABSOLUTE AUTO 2.79 K/mm3 (0.84-5.20); LYMPHOCYTES PERCENT AUTO 12 % (21-46); MONOCYTES PERCENT AUTO 7 % (4-13); Mean Corpuscular HGB 30.3 pg (26.0-34.0); Mean Corpuscular HGB Conc 32.6 g/dL (31.5-36.5); Mean Corpuscular Volume 93 fL (80-100); Mean Platelet Volume 9.9 fL (9.1-12.4); NEUTROPHILS ABSOLUTE AUTO 19.01 K/mm3 (1.96-9.15); NEUTROPHILS PERCENT AUTO 79 % (41-73); Platelet Count 486 K/mm3 (150-400); RDW Coefficient Variation 11.9 % (11.7-14.2); White Blood Cell Count 23.96 K/mm3 (4.00-11.30)
[2018-09-20 05:32] LABS: Albumin, Blood 1.6 g/dL (3.4-5.0); Anion Gap 10 mmol/L (6-16); Blood Urea Nitrogen 9 mg/dL (8-24); Bun/Creatinine Ratio 10.8 (12.0-20.0); CO2, Blood 29 mmol/L (21-32); Calcium, Blood 8.5 mg/dL (8.5-10.1); Chloride, Blood 96 mmol/L (98-108); Creatinine, Blood 0.83 mg/dL (0.60-1.20); Glomerular Filtration Rate >60 (60-); Glucose, Blood 266 mg/dL (70-99); Phosphorus, Blood 2.8 mg/dL (2.5-4.9); Potassium, Blood 3.7 mmol/L (3.5-5.5); Sodium, Blood 135 mmol/L (136-145)
--- NOTE | 2018-09-20 12:26 | NUR ---
History, Chart, Medications and Allergies reviewed before start of procedure. Patient confirms NPO status and agrees with scheduled surgery.
--- NOTE | 2018-09-20 12:32 | NUR ---
RLE ELEVATED ON PILLOW. DRSG NOTED INTACT. NO CHLORHEXIDINE PREP DONE.
--- NOTE | 2018-09-20 13:55 | NUR ---
09/20/18 1355 Bernice Plata PT ON SCHEDULED ANTIBIOTICS
[2018-09-20 16:42] LABS: Vancomycin, Trough 13.2 ug/mL (5.0-10.0)
[2018-09-21 05:00] LABS: BASOPHILS ABSOLUTE AUTO 0.05 K/mm3 (0.00-0.23); BASOPHILS PERCENT AUTO 0 % (0-2); EOSINOPHILS ABSOLUTE AUTO 0.03 K/mm3 (0.00-0.68); EOSINOPHILS PERCENT AUTO 0 % (0-6); Hemoglobin 9.9 g/dL (13.5-17.5); IMMATURE GRAN ABSOLUTE AUTO 0.16 K/mm3 (0.00-0.10); IMMATURE GRAN PERCENT AUTO 1 % (0-1); LYMPHOCYTES ABSOLUTE AUTO 2.21 K/mm3 (0.84-5.20); LYMPHOCYTES PERCENT AUTO 10 % (21-46); MONOCYTES ABSOLUTE AUTO 1.15 K/mm3 (0.16-1.47); MONOCYTES PERCENT AUTO 5 % (4-13); Mean Corpuscular HGB 30.3 pg (26.0-34.0); Mean Corpuscular HGB Conc 31.9 g/dL (31.5-36.5); Mean Corpuscular Volume 95 fL (80-100); Mean Platelet Volume 10.3 fL (9.1-12.4); NEUTROPHILS ABSOLUTE AUTO 19.59 K/mm3 (1.96-9.15); NEUTROPHILS PERCENT AUTO 85 % (41-73); Platelet Count 491 K/mm3 (150-400); RDW Standard Deviation 41.8 fL (35.1-46.3); Red Blood Cell Count 3.27 M/mm3 (4.30-5.90); White Blood Cell Count 23.19 K/mm3 (4.00-11.30)
[2018-09-21 05:23] LABS: Anion Gap 10 mmol/L (6-16); Blood Urea Nitrogen 18 mg/dL (8-24); Bun/Creatinine Ratio 19.1 (12.0-20.0); CO2, Blood 27 mmol/L (21-32); Calcium, Blood 7.9 mg/dL (8.5-10.1); Chloride, Blood 100 mmol/L (98-108); Creatinine, Blood 0.94 mg/dL (0.60-1.20); Glomerular Filtration Rate >60 (60-); Glucose, Blood 347 mg/dL (70-99); Potassium, Blood 4.2 mmol/L (3.5-5.5); Sodium, Blood 137 mmol/L (136-145)
--- NOTE | 2018-09-21 06:46 | NUR ---
VSS, AFEBRILE, A/O, CBG ACHS, 20G R FA, WOUND VAC TO R FOOT, NS @ 80 ML/HR, REFUSING STOOL SOFTENER, SLEPT WELL OVER NOC, INCONT AT TIMES
--- NOTE | 2018-09-21 18:38 | NUR ---
PT A/OX3, PLEASANT AND COOPERATIVE, THE PT IS UP WITH MINIMAL ASSIST, THE PT WAS ENCOURAGED TO USE HIS RIGHT HEEL WHEN IF STANDING TO LIMIT ANY PRESSURE TO HIS WOUND VAC AREA, THE PT ELEVATED HIS FOOT WHILE IN BED, THE PT DENIED ANY PAIN, THE PT APPEARS TO BE BREATHING EASILY AT REST, MANY VISITORS IN TO SEE THE PT TODAY, CALL LIGHT IN REACH BED IN THE LOW POSITION
--- NOTE | 2018-09-21 21:04 | NUR ---
VERBAL RECEIVED FROM DR KEITA TO CHANGE THE WOUND VAC EARLY DUE TO PATIENT WALKING ON IT AND THE SEAL BREAKING. NO COMPLAINTS OF PAIN NOTED. WILL CONTINUE TO MONITOR FOR CHANGES.
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
--- NOTE | 2018-09-22 16:39 | NUR ---
PT IS A/OX3 , PLEASANT AND COOPERATIVE, THE PT IS UP WITH MINIMAL ASSIST, PT PT DENIED ANY PAIN T/O THE DAY, THE PT HAS A WOUND VAC APPLIED TO HIS RIGHT FOOT INTACT AND OPERATING, THE PT APPEARS TO BE BREATHING EASILY ON RA, MULTIPLE FAMILY IN TO SEE THE PT TODAY, DR. HILL WAS IN TO CONSULT ON THE PT AND WILL BE IN TO SEE THE PT TOMARROW TO CHANGE THE WOUND VAC, CALL LIGHT IN REACH BED IN THE LOW POSITION
[2018-09-22 17:36] LABS: Vancomycin, Trough 15.1 ug/mL (5.0-10.0)
--- NOTE | 2018-09-22 19:49 | NUR ---
PT A/OX3, PLEASANT AND COOPERATIVE, THE PT IS UP WITH ASSIST, THE PT DENIED HAVING ANY PAIN T/O THE DAY, THE PT APPEARS TO BE BREATHING EASILY ON RA, THE PT ELEVATED HIS RIGHT LEG WHILE IN BED, PT HAS A WOUND VAC IN PLACE AND INTACT, FUNCTIONING PROPERLY, CALL LIGHT IN REACH BED IN THE LOW POSITION
--- NOTE | 2018-09-23 04:51 | NUR ---
SHIFT SUMMARY NO CHANGES THIS SHIFT. PT HAS RESTED FOR MOST OF THE NIGHT. WOUND VAC IN PLACE PATENT AND DRAINING. DRG CHANGE TO BE DONE BY EITHER DR. KEITA OR DR. PAUL TODAY. IV ABX INFUSED ORDERED. VITALS STABLE. WILL CONTINUE TO MONITOR AND REPORT TO ONCOMING RN.
[2018-09-23 05:03] LABS: BASOPHILS ABSOLUTE AUTO 0.06 K/mm3 (0.00-0.23); BASOPHILS PERCENT AUTO 0 % (0-2); EOSINOPHILS ABSOLUTE AUTO 0.22 K/mm3 (0.00-0.68); EOSINOPHILS PERCENT AUTO 1 % (0-6); Hematocrit 28.4 % (37.0-53.0); IMMATURE GRAN ABSOLUTE AUTO 0.09 K/mm3 (0.00-0.10); IMMATURE GRAN PERCENT AUTO 1 % (0-1); LYMPHOCYTES ABSOLUTE AUTO 2.53 K/mm3 (0.84-5.20); LYMPHOCYTES PERCENT AUTO 16 % (21-46); MONOCYTES ABSOLUTE AUTO 0.89 K/mm3 (0.16-1.47); MONOCYTES PERCENT AUTO 6 % (4-13); Mean Corpuscular HGB 30.1 pg (26.0-34.0); Mean Corpuscular HGB Conc 31.7 g/dL (31.5-36.5); Mean Corpuscular Volume 95 fL (80-100); Mean Platelet Volume 9.6 fL (9.1-12.4); NEUTROPHILS ABSOLUTE AUTO 12.47 K/mm3 (1.96-9.15); NEUTROPHILS PERCENT AUTO 77 % (41-73); Platelet Count 548 K/mm3 (150-400); RDW Standard Deviation 41.5 fL (35.1-46.3); Red Blood Cell Count 2.99 M/mm3 (4.30-5.90); White Blood Cell Count 16.26 K/mm3 (4.00-11.30)
[2018-09-23 05:18] LABS: Anion Gap 8 mmol/L (6-16); Blood Urea Nitrogen 16 mg/dL (8-24); Bun/Creatinine Ratio 20.2 (12.0-20.0); CO2, Blood 27 mmol/L (21-32); Calcium, Blood 7.9 mg/dL (8.5-10.1); Chloride, Blood 102 mmol/L (98-108); Creatinine, Blood 0.79 mg/dL (0.60-1.20); Glomerular Filtration Rate >60 (60-); Glucose, Blood 291 mg/dL (70-99); Potassium, Blood 3.9 mmol/L (3.5-5.5); Sodium, Blood 137 mmol/L (136-145)
--- NOTE | 2018-09-23 19:24 | NUR ---
SHIFT SUMMARY PATIENT A&O X4. DENIES ANY PAIN, NAUSEA, SOB THIS SHIFT. WOUND VAC TO R FOOT, CHANGED TODAY BY PHYSICIAN. MEDICATED PER E OCT. ACHS. BED IN LOWEST POSITION. CALLS APPROPRIATELY. NO ACUTE CHANGES.
--- NOTE | 2018-09-24 03:15 | NUR ---
SHIFT SUMMARY FULL CODE. NON-WEIGHT BEARING TO R LEG. UP IN CHAIR TID. ADA DIET WITH ASPIRATION PRECAUTIONS AND CBG AT AND HS WITH MEDIUM SS INSULIN COVERAGE. NEW ORDERS TO CHANGE THE WOUND VAC TO THE R FOOD EVERY MON, SUN, AND FRI, LAST CHANGES ON 09/23/18, PLEASE USE WHITE FOAM. DR. SCHROEDER CONSULTED DUE TO CHRONIC INFECTION AND DURATION OF ABO, SOME CHANGES TO ABO THERAPY WERE MADE. LOVENOX FOR DVT PROPHYLAXIS. NS AT 80 MLS/HR. 20 G IV TO R FA. 1 ASSIST WITH TRANSFER. TAKES MEDICATIONS WHOLE WITH WATER. DR. KEITA SPOKE WITH THE PT AND APPARENTLY IS RECOMMENDING A R BKA DUE TO THE WOUND BEING VERY LARGE, DIFFICULT TO CARE FOR, DIFFICULTY FOR THE WOUND TO GRANULATE, AND THE HIGH LIKELYHOOD THAT THE FOOT WOULD BE HIGHLY DISFUNCITONAL. DR. PAUL FOOT AND ANKLE CALLEAGUE OF DR. KEITA TO PROVIDE THE PT WITH A SECOND OPION TODAY. THE PT HAS BEEN RESTLESS SO FAR THIS SHIFT AND HAS HAD GREAT DIFFICULTY FALLING ASLEEP. THE PT IS STRUGGLING WITH NEEDING TO BE HOOKED UP TO CONT FLUIDS. PT IS LAYING IN BED RESTING AT THIS TIME. NO APPARENT SIGNS OF ACUTE DISTRESS. ABLE TO MAKE NEEDS KNOWN AND CALL LIGHT IN REACH.
[2018-09-24 05:33] LABS: BASOPHILS ABSOLUTE AUTO 0.07 K/mm3 (0.00-0.23); BASOPHILS PERCENT AUTO 0 % (0-2); EOSINOPHILS ABSOLUTE AUTO 0.23 K/mm3 (0.00-0.68); EOSINOPHILS PERCENT AUTO 1 % (0-6); Hematocrit 29.4 % (37.0-53.0); Hemoglobin 9.4 g/dL (13.5-17.5); IMMATURE GRAN PERCENT AUTO 1 % (0-1); LYMPHOCYTES ABSOLUTE AUTO 2.65 K/mm3 (0.84-5.20); LYMPHOCYTES PERCENT AUTO 17 % (21-46); MONOCYTES ABSOLUTE AUTO 1.02 K/mm3 (0.16-1.47); MONOCYTES PERCENT AUTO 6 % (4-13); Mean Corpuscular HGB 30.1 pg (26.0-34.0); Mean Corpuscular Volume 94 fL (80-100); Mean Platelet Volume 9.8 fL (9.1-12.4); NEUTROPHILS ABSOLUTE AUTO 11.84 K/mm3 (1.96-9.15); NEUTROPHILS PERCENT AUTO 75 % (41-73); Platelet Count 604 K/mm3 (150-400); RDW Standard Deviation 40.6 fL (35.1-46.3); Red Blood Cell Count 3.12 M/mm3 (4.30-5.90); White Blood Cell Count 15.91 K/mm3 (4.00-11.30)
[2018-09-24 06:17] LABS: Alanine Aminotransfer (ALT/SGP 19 U/L (12-78); Albumin, Blood 1.6 g/dL (3.4-5.0); Albumin/Globulin Ratio 0.3 (0.8-1.8); Alk Phos 112 U/L (50-136); Anion Gap 11 mmol/L (6-16); Aspartate Aminotrans (AST/SGOT 9 U/L (12-37); Bilirubin, Total 0.4 mg/dL (0.1-1.0); Blood Urea Nitrogen 14 mg/dL (8-24); Bun/Creatinine Ratio 19.1 (12.0-20.0); CO2, Blood 25 mmol/L (21-32); Chloride, Blood 100 mmol/L (98-108); Creatinine, Blood 0.73 mg/dL (0.60-1.20); Globulin, Blood 5.7 g/dL (2.2-4.0); Glomerular Filtration Rate >60 (60-); Glucose, Blood 228 mg/dL (70-99); Potassium, Blood 3.6 mmol/L (3.5-5.5); Sodium, Blood 136 mmol/L (136-145); Total Protein, Blood 7.3 g/dL (6.4-8.2)
--- NOTE | 2018-09-24 12:32 | NUR ---
PT GAVE VERBAL CONSENT FOR ME TO TREAT ON 09/25/2018.
--- NOTE | 2018-09-24 17:20 | NUR ---
PT AOX4 COOPERATIVE OF ALL CARE. PT TRANSFERS INDEPENDENTLY TO ROOM, BUT DOES NEED HELP WITH LINES FROM WOUND VAC AND IV. PT DENIES NEED OF PAIN MEDICATION AND HAS BEEN DOING WELL. NO DISTRESS NOTED AT THIS TIME.
--- NOTE | 2018-09-25 04:32 | NUR ---
SHIFT SUMMARY PT'S ADMITTING DX HAS BEEN RESOLVED. PT HAD CELLULITIS IN RT FOOT, I&D PERFORMED TO REMOVE PUS, WOUND VAC IN PLACE. IV ANTI B RX ARE AVAIL IN EMAR. PT WILL BE REASSESSED TODAY OR TOMORROW FOR THE POSSIBILITY OF A RT. BKA. PT IS ANXIOUS ABOUT THIS PROCEDURE. PT IS ACHS W/INSULIN AVAILABLE FOR COVERAGE - MEDIUM SS. PT HAS A HX OF DM 2 AND PREVIOUSLY HAD A DISTAL 1/2 AMPUTATION OF THE LEFT FOOT. ORDERS STATE THE WOUND VAC DRESSING IS TO BE CHANGED ON MON, WED, AND FRI - AND TO USE WHITE FOAM.
[2018-09-25 05:13] LABS: BASOPHILS ABSOLUTE AUTO 0.06 K/mm3 (0.00-0.23); BASOPHILS PERCENT AUTO 0 % (0-2); EOSINOPHILS PERCENT AUTO 1 % (0-6); Hematocrit 29.4 % (37.0-53.0); Hemoglobin 9.3 g/dL (13.5-17.5); IMMATURE GRAN PERCENT AUTO 1 % (0-1); LYMPHOCYTES ABSOLUTE AUTO 2.77 K/mm3 (0.84-5.20); LYMPHOCYTES PERCENT AUTO 19 % (21-46); MONOCYTES PERCENT AUTO 7 % (4-13); Mean Corpuscular HGB 30.6 pg (26.0-34.0); Mean Corpuscular HGB Conc 31.6 g/dL (31.5-36.5); Mean Corpuscular Volume 97 fL (80-100); Mean Platelet Volume 9.6 fL (9.1-12.4); NEUTROPHILS ABSOLUTE AUTO 10.25 K/mm3 (1.96-9.15); NEUTROPHILS PERCENT AUTO 71 % (41-73); Platelet Count 628 K/mm3 (150-400); RDW Standard Deviation 41.5 fL (35.1-46.3); Red Blood Cell Count 3.04 M/mm3 (4.30-5.90); White Blood Cell Count 14.38 K/mm3 (4.00-11.30)
[2018-09-25 05:39] LABS: Albumin, Blood 1.6 g/dL (3.4-5.0); Anion Gap 7 mmol/L (6-16); Blood Urea Nitrogen 16 mg/dL (8-24); Bun/Creatinine Ratio 21.6 (12.0-20.0); CO2, Blood 28 mmol/L (21-32); Calcium, Blood 8.4 mg/dL (8.5-10.1); Chloride, Blood 102 mmol/L (98-108); Creatinine, Blood 0.74 mg/dL (0.60-1.20); Glomerular Filtration Rate >60 (60-); Glucose, Blood 208 mg/dL (70-99); Phosphorus, Blood 3.6 mg/dL (2.5-4.9); Potassium, Blood 3.8 mmol/L (3.5-5.5); Sodium, Blood 137 mmol/L (136-145)
--- NOTE | 2018-09-25 10:43 | NUR ---
Initial Visit: Palliative Care Consult for advance care planing and AD/POLST. Pt is A&O and denies pain at this time. He reports intermittent pain in his foot and states pain level reaches a 3/10. He denies need for any intervention at this time. Engaged in therapeutic conversation about the goals of care including POLST/AD, and diabetes management. Pt lives alone in a garage that was converted into an apartment this is connected to his landlords home. He states that he is not close with family. He attends the [employer]. He reports that he can rely on his landlord for assistance with transportation during times that he is not able to drive himself. Pt denies anxiety at this time but does express concern on the possiblility of losing his foot. Discussed the importance of adhearing to blood sugar control including appropriateness of eating the right foods. Offered for a dietitian to visit and educate on the proper foods and he is agreeable. Educated on POLST form including sections of CPR, different options for medical treatment, and artificial nutrition by tube. Pt reports having an idea of his wishes but would like more time to consider all options. Instructed Pt to contact his nurse or palliative care for any questions or concerns of completing POLST. Plan is to obtain completed POLST. Placed order for dietitian consult. Will remain available.
--- NOTE | 2018-09-25 17:40 | NUR ---
PT HAS BEEN AOX4 TODAY AND COOPERATIVE OF CARE. WOUND VAC WAS NOT CHANGED TODAY DR PAUL HAS DECIDED AMPUTATION BELOW KNEE IS NEEDED FOR PT'S R FOOT. DR PAUL SAID TO LEAVE WOUND VAC IN PLACE TODAY. WOUND VAC IS RUNNING WELL AT THIS TIME. PT INDEPENDENT TO ROOM, JUST NEEDS ASSISTANCE WITH IV AND WOUND VAC TUBING. NO DISTRESS NOTED AT THIS TIME.
[2018-09-26 05:30] LABS: BASOPHILS ABSOLUTE AUTO 0.07 K/mm3 (0.00-0.23); BASOPHILS PERCENT AUTO 1 % (0-2); EOSINOPHILS PERCENT AUTO 2 % (0-6); Hematocrit 31.2 % (37.0-53.0); Hemoglobin 9.9 g/dL (13.5-17.5); IMMATURE GRAN ABSOLUTE AUTO 0.11 K/mm3 (0.00-0.10); IMMATURE GRAN PERCENT AUTO 1 % (0-1); LYMPHOCYTES ABSOLUTE AUTO 2.53 K/mm3 (0.84-5.20); LYMPHOCYTES PERCENT AUTO 20 % (21-46); MONOCYTES ABSOLUTE AUTO 1.08 K/mm3 (0.16-1.47); MONOCYTES PERCENT AUTO 9 % (4-13); Mean Corpuscular HGB 30.2 pg (26.0-34.0); Mean Corpuscular HGB Conc 31.7 g/dL (31.5-36.5); Mean Corpuscular Volume 95 fL (80-100); NEUTROPHILS ABSOLUTE AUTO 8.39 K/mm3 (1.96-9.15); NEUTROPHILS PERCENT AUTO 68 % (41-73); Platelet Count 653 K/mm3 (150-400); RDW Coefficient Variation 12.1 % (11.7-14.2); RDW Standard Deviation 41.9 fL (35.1-46.3); Red Blood Cell Count 3.28 M/mm3 (4.30-5.90); White Blood Cell Count 12.38 K/mm3 (4.00-11.30)
--- NOTE | 2018-09-26 06:02 | NUR ---
SHIFT SUMMARY: PT NPO SINCE MIDNIGHT FOR IMPENDING PROCEDURE TODAY. CONSULT CALLED TO DR SANFORD PER DR PAUL FROM R BK. WOUND VAC TO R FT PATENT; SEAL INTACT. SEROUS OUTPUT, MOD AMOUNT. CBG @ 230 THIS PM. PT RECIEVED 7 UNITS HUMALOG PER HIGH SS AND 70 UNITS LANTUS PER ORDERS. TWO NURSE VERIFIED DOSAGES. PT IS A&O X 4, CALL LIGHT APPROP, COOPERATIVE c CARE. NS RUNNING @ 80 ML/HR. NO OTHER CHANGES TO REPORT. WILL CONT TO MONITOR AND PROVIDE CARE UNTIL PRESUMED BY ONCOMING RN.
--- NOTE | 2018-09-26 09:35 | NUR ---
Pt visit this AM. Pt reports that he is not ready to complete POLST form at this time. He reports that he is having a BKA surgery this afternoon and does not want to deal with the POLST at this time. He denies pain and anxiety at this time. He states that losing his foot and lower leg "it is what it is" and he is not going to stress over it. Instructed Pt to contact palliative care for any quesitons or concerns. Will remain available.
--- NOTE | 2018-09-26 10:06 | NUR ---
DR SANFORD IN TO SEE PT, STATE BKA SURG THIS AFTERNOON. BLOOD SUGAR 284, STILL WORKER HELPERMADELEINE ARMENTA NOTIFIED, STATE TO GIVE HIGH S/S & LANTUUS INSULIN, DO NOT HOLD R/T NPO STATUS.
--- NOTE | 2018-09-26 10:24 | NUR ---
PATIENT DID NOT EAT BREAKFAST THIS SHIFT DUE TO BEING NPO AT THIS FOR A PROCEDURE.
--- NOTE | 2018-09-26 12:31 | NUR ---
PATIENT DID NOT EAT LUNCH THIS SHIFT DUE TO BEING NPO AT THIS TIME FOR A PROCEDURE.
--- NOTE | 2018-09-26 12:58 | NUR ---
CBG 174, HIGH S/S INSULIN HELD D/T NPO STATUS, PT AGREE. HE IS A/O X4, PLEASANT AFFECT. STATE NO PAIN RLE WOUND SITE, STATE HX NEUROPATHY. STATE READY/PREPARED FOR R BK AMPUTATION SURG THIS AFTERNOON. R FOOT/ANKLE IS RED, SWOLLEN WITH WOUND VAC DRSG IN PLACE. PT AWARE THAT SURG WILL BE LATER THIS AFTERNOON AND THAT HE WILL TRANSFER TO SURG FLOOR, AWAITING RM ASSIGNMENT.
--- NOTE | 2018-09-26 13:58 | NUR ---
History, Chart, Medications and Allergies reviewed before start of procedure. Lungs clear T/O to Auscultation. Patient confirms NPO status and agrees with scheduled surgery. CHEMBG OF 102 AT THIS TIME.
--- NOTE | 2018-09-26 17:10 | NUR ---
PATIENT TO ROOM 208 FROM PACU. ALERT AND ORIENTED. DENIES PAIN, NAUSEA, CP, SOB. R BKA WITH TAMMY WRAP STOCKING IN PLACE, C,D,I. LS CLEAR T/O. BIOX 95% ON RA. HRR. VSS. BT'S X 4. CONT TO MONITOR.
--- NOTE | 2018-09-26 19:01 | NUR ---
PATIENT MEDICATED WITH IV AND PO PAIN MEDS. APPEARS COMFORTABLE, WATCHING TV. TAKING PO WELL. NO NEEDS AT THIS TIME.
[2018-09-27 04:48] LABS: BASOPHILS ABSOLUTE AUTO 0.05 K/mm3 (0.00-0.23); BASOPHILS PERCENT AUTO 1 % (0-2); EOSINOPHILS ABSOLUTE AUTO 0.19 K/mm3 (0.00-0.68); EOSINOPHILS PERCENT AUTO 2 % (0-6); Hematocrit 31.1 % (37.0-53.0); Hemoglobin 9.6 g/dL (13.5-17.5); IMMATURE GRAN ABSOLUTE AUTO 0.08 K/mm3 (0.00-0.10); IMMATURE GRAN PERCENT AUTO 1 % (0-1); LYMPHOCYTES ABSOLUTE AUTO 2.72 K/mm3 (0.84-5.20); LYMPHOCYTES PERCENT AUTO 26 % (21-46); MONOCYTES ABSOLUTE AUTO 0.87 K/mm3 (0.16-1.47); MONOCYTES PERCENT AUTO 8 % (4-13); Mean Corpuscular HGB 29.6 pg (26.0-34.0); Mean Corpuscular HGB Conc 30.9 g/dL (31.5-36.5); Mean Corpuscular Volume 96 fL (80-100); Mean Platelet Volume 9.6 fL (9.1-12.4); NEUTROPHILS ABSOLUTE AUTO 6.44 K/mm3 (1.96-9.15); NEUTROPHILS PERCENT AUTO 62 % (41-73); Platelet Count 707 K/mm3 (150-400); RDW Coefficient Variation 12.3 % (11.7-14.2); RDW Standard Deviation 42.7 fL (35.1-46.3); Red Blood Cell Count 3.24 M/mm3 (4.30-5.90); White Blood Cell Count 10.35 K/mm3 (4.00-11.30)
[2018-09-27 05:03] LABS: Anion Gap 7 mmol/L (6-16); Blood Urea Nitrogen 22 mg/dL (8-24); Bun/Creatinine Ratio 28.4 (12.0-20.0); CO2, Blood 29 mmol/L (21-32); Calcium, Blood 8.5 mg/dL (8.5-10.1); Chloride, Blood 104 mmol/L (98-108); Creatinine, Blood 0.77 mg/dL (0.60-1.20); Glomerular Filtration Rate >60 (60-); Glucose, Blood 119 mg/dL (70-99); Potassium, Blood 4.2 mmol/L (3.5-5.5); Sodium, Blood 140 mmol/L (136-145)
--- NOTE | 2018-09-27 16:54 | NUR ---
REPORT GIVEN TO ADRIAN WHITE RN AT THIS TIME. PATIENT HAS BEEN ADM ATIVAN WITH GOOD RESULTS THIS SHIFT; RESTING QUIETLY W/ NO S/SX OF DISCOMFORT AFTER ADMIN. NO ACUTE CHANGES. RESP E/U. NO VISITORS TODAY YET.
--- NOTE | 2018-09-27 17:02 | NUR ---
ASSUMING CARE OF PT AT THIS TIME. PT RESTING IN CHAIR AT THIS TIME. DENIES NEED FOR PAIN MEDS, BUT REPORTS HE CAN FEEL PAIN COMING BACK. ENCOURAGED PAIN MEDICATION WHEN DUE. FAMILY AT SIDE. CALL DULCE GRANGER.
--- NOTE | 2018-09-27 17:03 | NUR ---
REPORT GIVEN TO Fátima WHITE. PATIENT STATES PAIN CONTROLLED WITH PO PAIN MED. UP TO RECLINER CHAIR WITH PT. R STUMP DRESSING D&I. NO ACUTE CHANGES OR C/O AT THIS TIME.
--- NOTE | 2018-09-28 04:47 | NUR ---
SHIFT SUMMARY PT IS POD 2 R BKA. HE HAS BEEN GENERALLY COMFORTABLE OVERNIGHT, THOUGH HE HAD ANOTHER EPISODE OF PHANTOM PAINS IN HIS RIGHT STUMP WHICH WAS MODERATELY PAINFUL THIS MORNING. PT IS A&O, ABLE TO MAKE NEEDS KNOWN. HE IS EATING, DRINKING, AND VOIDING WITHOUT ISSUE. COVERAGE PER EMAR HIGH SLIDING SCALE AT HS. PT IS SL. NO ACUTE CHANGES OVERNIGHT. STUMP SOCK IN PLACE, DRESSING WAS C/D/I AT TIME OF ASSESSMENT. WILL CTM UNTIL PASS TO NEXT SHIFT.
[2018-09-28 05:34] LABS: BASOPHILS ABSOLUTE AUTO 0.05 K/mm3 (0.00-0.23); BASOPHILS PERCENT AUTO 0 % (0-2); EOSINOPHILS ABSOLUTE AUTO 0.14 K/mm3 (0.00-0.68); EOSINOPHILS PERCENT AUTO 1 % (0-6); Hematocrit 30.5 % (37.0-53.0); Hemoglobin 9.6 g/dL (13.5-17.5); IMMATURE GRAN ABSOLUTE AUTO 0.06 K/mm3 (0.00-0.10); IMMATURE GRAN PERCENT AUTO 1 % (0-1); LYMPHOCYTES ABSOLUTE AUTO 2.79 K/mm3 (0.84-5.20); LYMPHOCYTES PERCENT AUTO 22 % (21-46); MONOCYTES ABSOLUTE AUTO 1.31 K/mm3 (0.16-1.47); MONOCYTES PERCENT AUTO 11 % (4-13); Mean Corpuscular HGB 29.7 pg (26.0-34.0); Mean Corpuscular HGB Conc 31.5 g/dL (31.5-36.5); Mean Corpuscular Volume 94 fL (80-100); Mean Platelet Volume 9.4 fL (9.1-12.4); NEUTROPHILS ABSOLUTE AUTO 8.12 K/mm3 (1.96-9.15); NEUTROPHILS PERCENT AUTO 65 % (41-73); Platelet Count 703 K/mm3 (150-400); RDW Coefficient Variation 12.2 % (11.7-14.2); RDW Standard Deviation 41.6 fL (35.1-46.3); Red Blood Cell Count 3.23 M/mm3 (4.30-5.90); White Blood Cell Count 12.47 K/mm3 (4.00-11.30)
[2018-09-28 06:02] LABS: Anion Gap 8 mmol/L (6-16); Blood Urea Nitrogen 19 mg/dL (8-24); Bun/Creatinine Ratio 24.9 (12.0-20.0); CO2, Blood 27 mmol/L (21-32); Calcium, Blood 8.5 mg/dL (8.5-10.1); Chloride, Blood 102 mmol/L (98-108); Creatinine, Blood 0.76 mg/dL (0.60-1.20); Glomerular Filtration Rate >60 (60-); Glucose, Blood 90 mg/dL (70-99); Potassium, Blood 3.9 mmol/L (3.5-5.5); Sodium, Blood 137 mmol/L (136-145)
--- NOTE | 2018-09-28 18:50 | NUR ---
PT C/O PHANTOM PAIN, MOSTLY FELT DURING MOVEMENT. MEDICATED PER EMAR, OXY WORKS BEST FOR PT. NO C/O N/V. PT VERY PLEASANT. 1 PRSN ASSIST. NO MAJOR CHANGES.
[2018-09-29] MEDS ORDERED: HYDR1TAB94 PO (11:46)
[2018-09-29] MEDS ORDERED: ACET325 PO (11:46)
[2018-09-29] MEDS ORDERED: OXYC5 PO (11:47)
[2018-09-29] MEDS ORDERED: SUCR1 PO (11:47)
[2018-09-29] MEDS ORDERED: CEPH500 PO (11:49)
[2018-09-29] MEDS ORDERED: PANT40 PO (11:51)
--- NOTE | 2018-09-29 14:22 | NUR ---
DISCHARGE PT D/C TO HOME. DRSG REMAINS C/D/I. VSS, RESP UNLABORED. PAIN CONTROLLED WITH PO NORCO. PT WILL HAVE HOME HEALTH F/U. D/C RX & INSTRUCTIONS GIVEN TO PT. PT ENC TO F/U [facility] FOR PROBLEMS OR CONCERNS
== END 2018-09-29 14:25 | disposition home health service (06) | DRG 616 ==
LOC: ER 16:17 → ICUW 19:45 → MEDS 19:45 → ICUW 20:50 → MEDS 09-12 21:35 → SURS 09-26 13:33 → MEDS 09-26 13:36 → SURS 09-26 13:48
PROVIDERS: Emergency Medicine; Family Medicine; Hospitalist; Internal Medicine; Orthopaedic Surgery; Physician Assistant; Student in an Organized Health Care Education/Training Program; ADMIT Hospitalist
PROC: 0DB68ZX Excision of Stomach, Via Natural or Artificial Opening Endoscopic, Diagnostic (ICD-10-PCS; principal; 2018-09-15 13:00)
PROC: 0LBV0ZZ Excision of Right Foot Tendon, Open Approach (ICD-10-PCS; 2018-09-20)
PROC: 0Y6H0Z3 Detachment at Right Lower Leg, Low, Open Approach (ICD-10-PCS; 2018-09-26)
DX: E11.10 Type 2 diabetes mellitus with ketoacidosis without coma (principal); A41.9 Sepsis, unspecified organism; E87.2 Acidosis; E87.1 Hypo-osmolality and hyponatremia; L03.115 Cellulitis of right lower limb; M86.9 Osteomyelitis, unspecified; K22.10 Ulcer of esophagus without bleeding; L02.611 Cutaneous abscess of right foot; L97.416 Non-pressure chronic ulcer of right heel and midfoot with bone involvement without evidence of necrosis; E11.621 Type 2 diabetes mellitus with foot ulcer; E11.40 Type 2 diabetes mellitus with diabetic neuropathy, unspecified; E78.00 Pure hypercholesterolemia, unspecified; Z89.421 Acquired absence of other right toe(s); Z89.422 Acquired absence of other left toe(s); Z87.891 Personal history of nicotine dependence; R40.2412 Glasgow coma scale score 13-15, at arrival to emergency department; I13.10 Hypertensive heart and chronic kidney disease without heart failure, with stage 1 through stage 4 chronic kidney disease, or unspecified chronic kidney disease; R00.0 Tachycardia, unspecified; Z79.4 Long term (current) use of insulin; M81.0 Age-related osteoporosis without current pathological fracture; R10.13 Epigastric pain; R13.10 Dysphagia, unspecified; E87.6 Hypokalemia; B95.62 Methicillin resistant Staphylococcus aureus infection as the cause of diseases classified elsewhere; D47.3 Essential (hemorrhagic) thrombocythemia
CPT/HCPCS: 36415; 71046; 71260; 73620; 73720; 74177; 76882; 80048; 80053; 80069; 80202; 82010; 82803; 82947; 83036; 83690; 83735; 84100; 84484; 85025; 85651; 86140; 87040; 87070; 87075; 87077; 87147; 87186; 87205; 88305; 88307; 88312; 90686; 93005; 93010; 93922; 94760; 94762; 96361; 96374; 97110; 97116; 97162; 97165; 97530; 99285-25; A9577; C9113; G0008; J0690; J0696; J1100; J1650; J1815; J1885; J2250; J2370; J2405; J2543; J2765; J3010; J3370; J3480; J7030; J7040; J7042; J7050; J7120; Q9967

== ENCOUNTER 2019-03-19 09:56 | Emergency (ER) | payer OTHER ==
[~2019-03-19] VITALS: Ht 172.7 cm; Wt 72.6 kg
[~2019-03-19 09:56] MED LIST changes: +ACET325 PO; +CEPH500 PO; +OXYC5 PO; +PANT40 PO; +SUCR1 PO
[2019-03-19 11:12] LABS: Base Excess Venous -0.9 mmol/L; Bicarbonate Venous 23.2 mmol/L (24.0-30.0); PCO2 Venous 44.1 mmHg (38-42); PO2 Venous 61.2 mmHg (38-42); pH Blood Venous 7.36 (7.34-7.37)
[2019-03-19 11:19] LABS: BASOPHILS ABSOLUTE AUTO 0.07 K/mm3 (0.00-0.23); BASOPHILS PERCENT AUTO 0 % (0-2); EOSINOPHILS ABSOLUTE AUTO 0.16 K/mm3 (0.00-0.68); EOSINOPHILS PERCENT AUTO 1 % (0-6); Hematocrit 43.9 % (37.0-53.0); IMMATURE GRAN ABSOLUTE AUTO 0.11 K/mm3 (0.00-0.10); IMMATURE GRAN PERCENT AUTO 1 % (0-1); LYMPHOCYTES ABSOLUTE AUTO 2.41 K/mm3 (0.84-5.20); LYMPHOCYTES PERCENT AUTO 12 % (21-46); MONOCYTES ABSOLUTE AUTO 1.26 K/mm3 (0.16-1.47); MONOCYTES PERCENT AUTO 6 % (4-13); Mean Corpuscular HGB 30.6 pg (26.0-34.0); Mean Corpuscular HGB Conc 34.2 g/dL (31.5-36.5); Mean Corpuscular Volume 90 fL (80-100); Mean Platelet Volume 10.9 fL (9.1-12.4); NEUTROPHILS ABSOLUTE AUTO 15.55 K/mm3 (1.96-9.15); NEUTROPHILS PERCENT AUTO 80 % (41-73); Platelet Count 316 K/mm3 (150-400); RDW Standard Deviation 42.7 fL (35.1-46.3); White Blood Cell Count 19.56 K/mm3 (4.00-11.30)
[2019-03-19 11:46] LABS: Alanine Aminotransfer (ALT/SGP 34 U/L (12-78); Albumin, Blood 3.9 g/dL (3.4-5.0); Albumin/Globulin Ratio 1.1 (0.8-1.8); Alk Phos 107 U/L (50-136); Anion Gap 10 mmol/L (6-16); Aspartate Aminotrans (AST/SGOT 18 U/L (12-37); Bilirubin, Total 0.5 mg/dL (0.1-1.0); Blood Urea Nitrogen 23 mg/dL (8-24); Bun/Creatinine Ratio 21.5 (12.0-20.0); CO2, Blood 24 mmol/L (21-32); Calcium, Blood 9.3 mg/dL (8.5-10.1); Chloride, Blood 103 mmol/L (98-108); Creatinine, Blood 1.07 mg/dL (0.60-1.20); Globulin, Blood 3.7 g/dL (2.2-4.0); Glomerular Filtration Rate >60 (60-); Glucose, Blood 102 mg/dL (70-99); Potassium, Blood 3.6 mmol/L (3.5-5.5); Sodium, Blood 137 mmol/L (136-145); Total Protein, Blood 7.6 g/dL (6.4-8.2)
[2019-03-19 12:09] LABS: Beta-hydroxybutyrate 2.2 mg/dL (0.2-2.8)
[2019-03-19 12:58] LABS: Source, Urine Clean Catch
[2019-03-19 13:04] LABS: U Amphetamine Screen Not Detected; U Barbituate Screen Not Detected; U Benzodiazapine Screen Not Detected; U Buprenorphine Screen Not Detected; U Cannabinoids Screen Not Detected; U Cocaine Screen Not Detected; U Methadone Screen Not Detected; U Methamphetamine Screen Not Detected; U Opiates Screen Not Detected; U Oxycodone Screen Not Detected; U Phencyclidine Screen Not Detected; U Propoxyphene Screen Not Detected
[2019-03-19 13:10] LABS: Appearance, Urine Clear (Clear); Bilirubin, Urine Neg (Neg); Blood, Urine Neg (Neg); Color, Urine Yellow (P-Yellow); Glucose Qualitative, Urine 3+ (Neg); Ketones, Urine Neg (Neg); Leukocyte Esterase, Urine Neg (Neg); Nitrite, Urine Neg (Neg); Protein, Urine 3+ (Neg); Specific Gravity, Urine 1.015 (1.003-1.022); Urobilinogen, Urine NORM (Normal)
[2019-03-19 13:40] LABS: Bacteria Few /hpf; Red Blood Cells, Urine 0-2 /hpf (0-2); Squamous Epithelial Cells Not Seen /hpf (Few); White Blood Cells, Urine 0-2 /hpf (0-5)
== END 2019-03-19 15:06 | disposition home or self-care (01) ==
LOC: ER 09:56
PROVIDERS: Emergency Medicine
DX: E11.649 Type 2 diabetes mellitus with hypoglycemia without coma (principal); D72.829 Elevated white blood cell count, unspecified; Z79.899 Other long term (current) drug therapy; Z79.4 Long term (current) use of insulin; I10 Essential (primary) hypertension; E11.40 Type 2 diabetes mellitus with diabetic neuropathy, unspecified; Z87.891 Personal history of nicotine dependence
CPT/HCPCS: 36415; 71045; 80053; 81001; 82010; 82803; 82947; 85025; 96360; 99283-25; J7030

== ENCOUNTER → 2019-06-13 | Outpatient (CLI) | payer OTHER ==
[2019-06-13 12:49] LABS: Source, Urine Clean Catch
[2019-06-13 13:55] LABS: Bilirubin, Urine Neg (Neg); Blood, Urine 2+ (Neg); Glucose Qualitative, Urine 1+ (Neg); Ketones, Urine Neg (Neg); Leukocyte Esterase, Urine Neg (Neg); Nitrite, Urine Neg (Neg); Protein, Urine 3+ (Neg); Specific Gravity, Urine 1.015 (1.003-1.022); Urobilinogen, Urine NORM (Normal)
[2019-06-13 14:10] LABS: Appearance, Urine Clear (Clear); Color, Urine Yellow (P-Yellow)
[2019-06-13 14:21] LABS: Bacteria Few /hpf; Squamous Epithelial Cells Not Seen /hpf (Few); White Blood Cells, Urine 0-2 /hpf (0-5)
[2019-06-13 14:35] LABS: Creatinine, Urine Random 43.8 mg/dL (27.00-270.00)
[2019-06-13 16:07] LABS: Microalb/Creat Ratio UR, Rand 3219.18 mg/g (0.000-30.000)
== END | disposition home or self-care (01) ==
LOC: LAB SHORT 12:26 → LAB 12:26
PROVIDERS: Student in an Organized Health Care Education/Training Program
DX: R80.1 Persistent proteinuria, unspecified (principal)
CPT/HCPCS: 81001; 82043; 82570

== ENCOUNTER → 2019-09-07 | Outpatient (CLI) | payer OTHER ==
[2019-09-07 17:44] LABS: BASOPHILS ABSOLUTE AUTO 0.06 K/mm3 (0.00-0.23); BASOPHILS PERCENT AUTO 1 % (0-2); EOSINOPHILS ABSOLUTE AUTO 0.48 K/mm3 (0.00-0.68); EOSINOPHILS PERCENT AUTO 5 % (0-6); Hematocrit 45.6 % (37.0-53.0); Hemoglobin 14.8 g/dL (13.5-17.5); IMMATURE GRAN ABSOLUTE AUTO 0.03 K/mm3 (0.00-0.10); IMMATURE GRAN PERCENT AUTO 0 % (0-1); LYMPHOCYTES ABSOLUTE AUTO 3.49 K/mm3 (0.84-5.20); LYMPHOCYTES PERCENT AUTO 32 % (21-46); MONOCYTES ABSOLUTE AUTO 1.15 K/mm3 (0.16-1.47); MONOCYTES PERCENT AUTO 11 % (4-13); Mean Corpuscular HGB 29.7 pg (26.0-34.0); Mean Corpuscular HGB Conc 32.5 g/dL (31.5-36.5); Mean Corpuscular Volume 92 fL (80-100); Mean Platelet Volume 11.7 fL (9.1-12.4); NEUTROPHILS ABSOLUTE AUTO 5.56 K/mm3 (1.96-9.15); NEUTROPHILS PERCENT AUTO 52 % (41-73); Platelet Count 279 K/mm3 (150-400); RDW Coefficient Variation 12.6 % (11.7-14.2); RDW Standard Deviation 42.6 fL (35.1-46.3); Red Blood Cell Count 4.98 M/mm3 (4.30-5.90); White Blood Cell Count 10.77 K/mm3 (4.00-11.30)
[2019-09-07 17:59] LABS: Alanine Aminotransfer (ALT/SGP 45 U/L (12-78); Alk Phos 90 U/L (50-136); Anion Gap 8 mmol/L (6-16); Aspartate Aminotrans (AST/SGOT 27 U/L (12-37); Bilirubin, Total 0.5 mg/dL (0.1-1.0); Blood Urea Nitrogen 34 mg/dL (8-24); Bun/Creatinine Ratio 31.5 (12.0-20.0); CO2, Blood 23 mmol/L (21-32); Calcium, Blood 9.3 mg/dL (8.5-10.1); Chloride, Blood 106 mmol/L (98-108); Creatinine, Blood 1.08 mg/dL (0.60-1.20); Glomerular Filtration Rate >60 (60-); Glucose, Blood 112 mg/dL (70-99); Potassium, Blood 4.3 mmol/L (3.5-5.5); Sodium, Blood 137 mmol/L (136-145)
== END | disposition home or self-care (01) ==
LOC: LAB 16:29 → LAB SHORT 16:29
PROVIDERS: Nurse Practitioner
DX: R19.7 Diarrhea, unspecified (principal); R19.5 Other fecal abnormalities
CPT/HCPCS: 80053; 83690; 85025

== ENCOUNTER → 2019-12-15 | Outpatient (CLI) | payer OTHER | END | disposition home or self-care (01) | LOC: LAB 10:01 → LAB SHORT 10:01 | DX: L02.414 Cutaneous abscess of left upper limb (principal) | CPT/HCPCS: 87070; 87075; 87205 ==

== ENCOUNTER → 2020-06-21 | Outpatient (CLI) | payer OTHER ==
[2020-06-29 11:08] LABS: COTININE <10.0 ng/mL (.); NICOTINE <10.0 ng/mL (.)
== END | disposition home or self-care (01) ==
LOC: LAB 13:21 → LAB SHORT 13:21
PROVIDERS: Student in an Organized Health Care Education/Training Program
DX: F17.210 Nicotine dependence, cigarettes, uncomplicated (principal)
CPT/HCPCS: G0480

== ENCOUNTER 2020-09-08 11:26 | Day surgery (SDC) | payer OTHER ==
[~2020-09-08] VITALS: Ht 172.7 cm; Wt 118.1 kg
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
--- NOTE | 2020-09-08 16:09 | NUR ---
09/08/20 1609 Alba Maguire 1539 LATE ENTRY PT. VERBALIZES HIS EYESIGHT WAS BLURRY AFTER PUTTING THE ICE PACK OVER HIS EYES. PT. INSTRUCTED THAT IT WAS PROBABLY FROM THE EYE OINTMENT THAT WAS APPLIED DURING HIS SURGERY. DR. SCHMITZ NOTIFIED & DR. SCHMITZ SAID THE PT.'S EYES WOULD BE BLURRY.
[2020-12-29] MEDS ORDERED: GABA300 PO (09:30)
[2020-12-29] MEDS ORDERED: LOSARTAN POTAS100 M1 PO (09:30)
[2020-12-29] MEDS ORDERED: METF500 PO (09:31)
[2020-12-29] MEDS ORDERED: HYDCHL25 PO (09:31)
== END 2020-09-08 16:02 | disposition home or self-care (01) ==
LOC: ORSCSDS 11:26
PROVIDERS: Ophthalmology
PROC: 0KU Muscles, Supplement (ICD-10-PCS; principal; 2020-09-08 13:45)
DX: Q10.0 Congenital ptosis (principal); I10 Essential (primary) hypertension; E11.319 Type 2 diabetes mellitus with unspecified diabetic retinopathy without macular edema; E11.51 Type 2 diabetes mellitus with diabetic peripheral angiopathy without gangrene; E78.5 Hyperlipidemia, unspecified; I25.10 Atherosclerotic heart disease of native coronary artery without angina pectoris; Z79.4 Long term (current) use of insulin; K21.9 Gastro-esophageal reflux disease without esophagitis; Z79.899 Other long term (current) drug therapy; Z87.891 Personal history of nicotine dependence; E66.9 Obesity, unspecified; Z68.39 Body mass index [BMI] 39.0-39.9, adult
CPT/HCPCS: 82947; A9270; J0171; J2250; J2704; J7040

== ENCOUNTER → 2020-12-15 | Outpatient (CLI) | payer OTHER | END | disposition home or self-care (01) | LOC: LAB SHORT 10:41 | DX: E11.51 Type 2 diabetes mellitus with diabetic peripheral angiopathy without gangrene (principal) | CPT/HCPCS: 82043 ==

== ENCOUNTER 2021-01-05 11:33 | Day surgery (SDC) | payer OTHER ==
[~2021-01-05] VITALS: Ht 172.7 cm; Wt 112.3 kg
[~2021-01-05 11:33] MED LIST changes: +HYDCHL25 PO; +LOSARTAN POTAS100 M1 PO
[2021-01-05] MEDS ORDERED: ALBU90OI INH (12:01)
--- NOTE | 2021-01-05 13:46 | NUR ---
01/05/21 1346 Cherie Nicolas USED FOR IRRIGATION
== END 2021-01-05 14:04 | disposition home or self-care (01) ==
LOC: ORSCSDS 11:33
PROVIDERS: Ophthalmology
PROC: 08CNXZZ Extirpation of Matter from Right Upper Eyelid, External Approach (ICD-10-PCS; principal; 2021-01-05 14:00)
DX: T81.41XS Infection following a procedure, superficial incisional surgical site, sequela (principal); Z98.890 Other specified postprocedural states; E66.01 Morbid (severe) obesity due to excess calories; Z68.37 Body mass index [BMI] 37.0-37.9, adult; Z87.891 Personal history of nicotine dependence; I10 Essential (primary) hypertension; E11.9 Type 2 diabetes mellitus without complications; Z79.84 Long term (current) use of oral hypoglycemic drugs; Z79.899 Other long term (current) drug therapy
CPT/HCPCS: 82947; A9270; J0171; J0690; J2250; J7120

== ENCOUNTER → 2021-01-17 | Outpatient (CLI) | payer OTHER ==
[~2021-01-17] MED LIST changes: +ALBU90OI INH
== END | disposition home or self-care (01) ==
LOC: LAB SHORT 13:15 → LAB 13:15
DX: L89.892 Pressure ulcer of other site, stage 2 (principal)
CPT/HCPCS: 87070; 87205

== ENCOUNTER 2021-01-24 00:45 | Day surgery (SDC) | payer OTHER | END 2021-01-24 22:59 | disposition home or self-care (01) | LOC: WOUND 00:45 | DX: E11.621 Type 2 diabetes mellitus with foot ulcer (principal); L97.512 Non-pressure chronic ulcer of other part of right foot with fat layer exposed; L89.892 Pressure ulcer of other site, stage 2; T87.89 Other complications of amputation stump; E11.40 Type 2 diabetes mellitus with diabetic neuropathy, unspecified; E11.51 Type 2 diabetes mellitus with diabetic peripheral angiopathy without gangrene; F17.200 Nicotine dependence, unspecified, uncomplicated; E78.1 Pure hyperglyceridemia; I25.10 Atherosclerotic heart disease of native coronary artery without angina pectoris; I12.9 Hypertensive chronic kidney disease with stage 1 through stage 4 chronic kidney disease, or unspecified chronic kidney disease; N18.9 Chronic kidney disease, unspecified; E11.22 Type 2 diabetes mellitus with diabetic chronic kidney disease; Y83.5 Amputation of limb(s) as the cause of abnormal reaction of the patient, or of later complication, without mention of misadventure at the time of the procedure; Z79.4 Long term (current) use of insulin | CPT/HCPCS: G0463 ==

== ENCOUNTER 2021-01-31 01:05 | Day surgery (SDC) | payer OTHER | END 2021-01-31 23:14 | disposition home or self-care (01) | LOC: WOUND 01:05 | DX: E11.622 Type 2 diabetes mellitus with other skin ulcer (principal); L97.912 Non-pressure chronic ulcer of unspecified part of right lower leg with fat layer exposed; L89.892 Pressure ulcer of other site, stage 2; L97.522 Non-pressure chronic ulcer of other part of left foot with fat layer exposed | CPT/HCPCS: G0463 ==

== ENCOUNTER 2021-02-07 00:57 | Day surgery (SDC) | payer OTHER | END 2021-02-08 02:22 | disposition home or self-care (01) | LOC: WOUND 00:57 | DX: E11.621 Type 2 diabetes mellitus with foot ulcer (principal); L97.522 Non-pressure chronic ulcer of other part of left foot with fat layer exposed; L89.892 Pressure ulcer of other site, stage 2; T87.89 Other complications of amputation stump | CPT/HCPCS: A9270; G0463 ==

== ENCOUNTER 2021-06-16 15:44 | Emergency (ER) | payer OTHER ==
[~2021-06-16] VITALS: Ht 167.6 cm; Wt 90.7 kg
[2021-06-16 17:11] LABS: BASOPHILS ABSOLUTE AUTO 0.06 K/mm3 (0.00-0.23); BASOPHILS PERCENT AUTO 1 % (0-2); EOSINOPHILS ABSOLUTE AUTO 0.28 K/mm3 (0.00-0.68); EOSINOPHILS PERCENT AUTO 3 % (0-6); Hematocrit 42.6 % (37.0-53.0); Hemoglobin 14.6 g/dL (13.5-17.5); IMMATURE GRAN ABSOLUTE AUTO 0.03 K/mm3 (0.00-0.10); IMMATURE GRAN PERCENT AUTO 0 % (0-1); LYMPHOCYTES ABSOLUTE AUTO 2.21 K/mm3 (0.84-5.20); LYMPHOCYTES PERCENT AUTO 24 % (21-46); MONOCYTES ABSOLUTE AUTO 0.62 K/mm3 (0.16-1.47); MONOCYTES PERCENT AUTO 7 % (4-13); Mean Corpuscular HGB 30.8 pg (26.0-34.0); Mean Corpuscular HGB Conc 34.3 g/dL (31.5-36.5); Mean Corpuscular Volume 90 fL (80-100); Mean Platelet Volume 11.4 fL (9.1-12.4); NEUTROPHILS ABSOLUTE AUTO 6.18 K/mm3 (1.96-9.15); NEUTROPHILS PERCENT AUTO 66 % (41-73); Platelet Count 285 K/mm3 (150-400); RDW Coefficient Variation 12.3 % (11.7-14.2); RDW Standard Deviation 40.6 fL (35.1-46.3); Red Blood Cell Count 4.74 M/mm3 (4.30-5.90); White Blood Cell Count 9.38 K/mm3 (4.00-11.30)
[2021-06-16 17:41] LABS: Beta-hydroxybutyrate 7.8 mg/dL (0.2-2.8)
[2021-06-16 17:57] LABS: Albumin/Globulin Ratio 0.7 (0.8-1.8); Bilirubin, Total 0.5 mg/dL (0.1-1.0); Bun/Creatinine Ratio 19.9 (12.0-20.0); Calcium, Blood 9.2 mg/dL (8.5-10.1); Creatinine, Blood 1.76 mg/dL (0.60-1.20); Globulin, Blood 4.2 g/dL (2.2-4.0); Potassium, Blood 5.2 mmol/L (3.5-5.5); Total Protein, Blood 7.2 g/dL (6.4-8.2)
[2021-06-16 18:13] LABS: Source, Urine Clean Catch
[2021-06-16 18:18] LABS: Appearance, Urine Clear (Clear); Bilirubin, Urine Neg (Neg); Blood, Urine Neg (Neg); Color, Urine Yellow (P-Yellow); Glucose Qualitative, Urine 4+ (Neg); Ketones, Urine 1+ (Neg); Leukocyte Esterase, Urine Neg (Neg); Nitrite, Urine Neg (Neg); Protein, Urine 2+ (Neg); Specific Gravity, Urine 1.015 (1.003-1.022); Urobilinogen, Urine NORM (Normal)
[2021-06-16 18:30] LABS: Bacteria Mod /hpf; Red Blood Cells, Urine Rare /hpf (0-2); Squamous Epithelial Cells Rare /hpf (Few); White Blood Cells, Urine 0-2 /hpf (0-5)
[2021-06-16 18:50] LABS: Glucose, Blood 622 mg/dL (70-99)
[2021-06-16] MEDS ORDERED: BASAGLAR K100 UNIT/3 SC (20:11)
== END 2021-06-16 20:30 | disposition home or self-care (01) ==
LOC: ER 15:44
PROVIDERS: Emergency Medicine; Physician Assistant
DX: E11.65 Type 2 diabetes mellitus with hyperglycemia (principal); E78.00 Pure hypercholesterolemia, unspecified; I10 Essential (primary) hypertension; E11.40 Type 2 diabetes mellitus with diabetic neuropathy, unspecified; Z79.899 Other long term (current) drug therapy; F17.200 Nicotine dependence, unspecified, uncomplicated
CPT/HCPCS: 36415; 71046; 80053; 81001; 82010; 82947; 85025; 87086; 93005; 93010; 99285-25; A9270; J1815; J7030

== ENCOUNTER 2021-10-04 03:59 | Day surgery (SDC) | payer OTHER ==
[~2021-10-04 03:59] MED LIST changes: +BASAGLAR K100 UNIT/3 SC
== END 2021-10-04 22:37 | disposition home or self-care (01) ==
LOC: WOUND 03:59
DX: L89.893 Pressure ulcer of other site, stage 3 (principal); E11.621 Type 2 diabetes mellitus with foot ulcer; L97.422 Non-pressure chronic ulcer of left heel and midfoot with fat layer exposed; E11.622 Type 2 diabetes mellitus with other skin ulcer; L97.812 Non-pressure chronic ulcer of other part of right lower leg with fat layer exposed; E11.40 Type 2 diabetes mellitus with diabetic neuropathy, unspecified; E11.51 Type 2 diabetes mellitus with diabetic peripheral angiopathy without gangrene; E11.59 Type 2 diabetes mellitus with other circulatory complications; T87.89 Other complications of amputation stump; I10 Essential (primary) hypertension; Z79.4 Long term (current) use of insulin
CPT/HCPCS: A9270; G0463

== ENCOUNTER 2021-10-11 04:03 | Day surgery (SDC) | payer OTHER | END 2021-10-11 22:44 | disposition home or self-care (01) | LOC: WOUND 04:03 | DX: T87.89 Other complications of amputation stump (principal); L89.893 Pressure ulcer of other site, stage 3; E11.622 Type 2 diabetes mellitus with other skin ulcer; L97.812 Non-pressure chronic ulcer of other part of right lower leg with fat layer exposed; E11.621 Type 2 diabetes mellitus with foot ulcer; L97.422 Non-pressure chronic ulcer of left heel and midfoot with fat layer exposed; E11.40 Type 2 diabetes mellitus with diabetic neuropathy, unspecified; E11.59 Type 2 diabetes mellitus with other circulatory complications | CPT/HCPCS: G0463 ==

== ENCOUNTER 2021-10-18 00:36 | Day surgery (SDC) | payer OTHER | END 2021-10-18 22:57 | disposition home or self-care (01) | LOC: WOUND 00:36 | DX: L89.893 Pressure ulcer of other site, stage 3 (principal); T87.89 Other complications of amputation stump; E11.621 Type 2 diabetes mellitus with foot ulcer; L97.422 Non-pressure chronic ulcer of left heel and midfoot with fat layer exposed; E11.622 Type 2 diabetes mellitus with other skin ulcer; E11.40 Type 2 diabetes mellitus with diabetic neuropathy, unspecified; E11.59 Type 2 diabetes mellitus with other circulatory complications | CPT/HCPCS: G0463 ==

== ENCOUNTER 2021-10-31 15:56 | Emergency (ER) | payer OTHER ==
[~2021-10-31] VITALS: Ht 167.6 cm; Wt 81.7 kg
[~2021-10-31 15:56] MED LIST changes: -LOSARTAN POTAS100 M1 PO; +LOSARTAN POTAS100 MG PO; -Novolog100 UNIT/2; +Novolog100 UNIT/2 SC
[2021-10-31 17:13] LABS: BASOPHILS ABSOLUTE AUTO 0.06 K/mm3 (0.00-0.23); BASOPHILS PERCENT AUTO 1 % (0-2); EOSINOPHILS PERCENT AUTO 3 % (0-6); Hematocrit 44.3 % (37.0-53.0); Hemoglobin 15.2 g/dL (13.5-17.5); IMMATURE GRAN ABSOLUTE AUTO 0.04 K/mm3 (0.00-0.10); IMMATURE GRAN PERCENT AUTO 1 % (0-1); LYMPHOCYTES ABSOLUTE AUTO 2.49 K/mm3 (0.84-5.20); LYMPHOCYTES PERCENT AUTO 28 % (21-46); MONOCYTES PERCENT AUTO 6 % (4-13); Mean Corpuscular HGB Conc 34.3 g/dL (31.5-36.5); Mean Corpuscular Volume 88 fL (80-100); Mean Platelet Volume 11.1 fL (9.1-12.4); NEUTROPHILS ABSOLUTE AUTO 5.47 K/mm3 (1.96-9.15); NEUTROPHILS PERCENT AUTO 62 % (41-73); Platelet Count 300 K/mm3 (150-400); RDW Coefficient Variation 12.5 % (11.7-14.2); RDW Standard Deviation 40.3 fL (35.1-46.3); Red Blood Cell Count 5.06 M/mm3 (4.30-5.90); White Blood Cell Count 8.86 K/mm3 (4.00-11.30)
[2021-10-31 17:37] LABS: Alanine Aminotransfer (ALT/SGP 37 U/L (12-78); Albumin, Blood 3.4 g/dL (3.4-5.0); Albumin/Globulin Ratio 0.8 (0.8-1.8); Alk Phos 196 U/L (50-136); Anion Gap 8 mmol/L (6-16); Aspartate Aminotrans (AST/SGOT 15 U/L (12-37); Bilirubin, Total 0.4 mg/dL (0.1-1.0); Blood Urea Nitrogen 43 mg/dL (8-24); CO2, Blood 24 mmol/L (21-32); Calcium, Blood 9.5 mg/dL (8.5-10.1); Chloride, Blood 92 mmol/L (98-108); Creatinine, Blood 0.91 mg/dL (0.60-1.20); Globulin, Blood 4.2 g/dL (2.2-4.0); Glomerular Filtration Rate >60 (60-); Glucose, Blood 789 mg/dL (70-99); Potassium, Blood 5.4 mmol/L (3.5-5.5); Sodium, Blood 124 mmol/L (136-145); Total Protein, Blood 7.6 g/dL (6.4-8.2)
== END 2021-10-31 21:02 | disposition home or self-care (01) ==
LOC: ER 15:56
PROVIDERS: Physician Assistant
DX: E11.65 Type 2 diabetes mellitus with hyperglycemia (principal); E11.40 Type 2 diabetes mellitus with diabetic neuropathy, unspecified; I10 Essential (primary) hypertension; E78.00 Pure hypercholesterolemia, unspecified; F17.200 Nicotine dependence, unspecified, uncomplicated; Z79.4 Long term (current) use of insulin; Z79.84 Long term (current) use of oral hypoglycemic drugs; Z79.899 Other long term (current) drug therapy; Z20.822 Contact with and (suspected) exposure to COVID-19
CPT/HCPCS: 36415; 80053; 82947; 85025; 93005; 93010; 99284-25; J1815; J7030; U0003

== ENCOUNTER 2021-11-01 05:00 | Day surgery (SDC) | payer OTHER | END 2021-11-01 23:51 | disposition home or self-care (01) | LOC: WOUND 05:00 | DX: E11.621 Type 2 diabetes mellitus with foot ulcer (principal); E11.622 Type 2 diabetes mellitus with other skin ulcer; L97.422 Non-pressure chronic ulcer of left heel and midfoot with fat layer exposed; L97.522 Non-pressure chronic ulcer of other part of left foot with fat layer exposed; L97.212 Non-pressure chronic ulcer of right calf with fat layer exposed; L89.893 Pressure ulcer of other site, stage 3; E11.40 Type 2 diabetes mellitus with diabetic neuropathy, unspecified; E11.59 Type 2 diabetes mellitus with other circulatory complications; T87.89 Other complications of amputation stump | CPT/HCPCS: G0463 ==

== ENCOUNTER 2021-11-02 12:02 | Day surgery (SDC) | payer OTHER ==
[~2021-11-02] VITALS: Ht 167.6 cm; Wt 81.8 kg
[~2021-11-02 12:02] MED LIST changes: +LOSARTAN POTAS100 M1 PO; -LOSARTAN POTAS100 MG PO; +Novolog100 UNIT/2; -Novolog100 UNIT/2 SC
--- NOTE | 2021-11-02 12:42 | NUR ---
11/02/21 1242 Imelda Tong notified of a1c of 17.0 recent blood sugars of 789, and that cbg reading is stating high for glucose. pt states he does not have a meter for diabetes at home and cant afford any of his medications right now/ he goes to the er when it feels like he is getting to high with his sugars.
[2021-11-02 13:30] LABS: Anion Gap 11 mmol/L (6-16); Blood Urea Nitrogen 36 mg/dL (8-24); Bun/Creatinine Ratio 37.7 (12.0-20.0); CO2, Blood 23 mmol/L (21-32); Calcium, Blood 10.1 mg/dL (8.5-10.1); Chloride, Blood 101 mmol/L (98-108); Creatinine, Blood 0.96 mg/dL (0.60-1.20); Glomerular Filtration Rate >60 (60-); Glucose, Blood 574 mg/dL (70-99); Potassium, Blood 4.9 mmol/L (3.5-5.5)
[2021-11-02 13:34] LABS: Sodium, Blood 135 mmol/L (136-145)
== END 2021-11-02 13:10 | disposition home or self-care (01) ==
LOC: ORSCSDS 12:02
PROVIDERS: Ophthalmology
DX: T85.3 Mechanical complication of other ocular prosthetic devices, implants and grafts (principal); Z53.9 Procedure and treatment not carried out, unspecified reason
CPT/HCPCS: 80048; 82947; A9270; J0171; J2250; J2704; J3010

== ENCOUNTER 2021-11-08 02:20 | Day surgery (SDC) | payer OTHER | END 2021-11-08 23:36 | disposition home or self-care (01) | LOC: WOUND 02:20 | DX: E11.621 Type 2 diabetes mellitus with foot ulcer (principal); L97.422 Non-pressure chronic ulcer of left heel and midfoot with fat layer exposed; L97.522 Non-pressure chronic ulcer of other part of left foot with fat layer exposed; E11.622 Type 2 diabetes mellitus with other skin ulcer; T87.89 Other complications of amputation stump; E11.40 Type 2 diabetes mellitus with diabetic neuropathy, unspecified; E11.59 Type 2 diabetes mellitus with other circulatory complications; L97.212 Non-pressure chronic ulcer of right calf with fat layer exposed; L89.893 Pressure ulcer of other site, stage 3 | CPT/HCPCS: A9270; G0463 ==

== ENCOUNTER 2021-11-10 10:01 | Emergency (ER) | payer OTHER ==
[~2021-11-10] VITALS: Ht 167.6 cm; Wt 81.7 kg
[2021-11-10] MEDS ORDERED: ATOR80 PO (14:00)
[2021-11-10] MEDS ORDERED: VALS80 PO (14:00)
[2021-11-10] MEDS ORDERED: METF500 PO (14:00)
[2021-11-10] MEDS ORDERED: HYDCHL25 PO (14:00)
== END 2021-11-10 14:06 | disposition home or self-care (01) ==
LOC: ER 10:01
DX: E11.65 Type 2 diabetes mellitus with hyperglycemia (principal); I10 Essential (primary) hypertension; Z91.19 Patient's noncompliance with other medical treatment and regimen; E78.00 Pure hypercholesterolemia, unspecified; Z79.899 Other long term (current) drug therapy
CPT/HCPCS: 82947; 99285; A9270; J1815

== ENCOUNTER 2021-11-15 02:40 | Day surgery (SDC) | payer OTHER ==
[~2021-11-15 02:40] MED LIST changes: +ATOR80 PO; +VALS80 PO
== END 2021-11-15 22:55 | disposition home or self-care (01) ==
LOC: WOUND 02:40
DX: E11.621 Type 2 diabetes mellitus with foot ulcer (principal); L97.422 Non-pressure chronic ulcer of left heel and midfoot with fat layer exposed; E11.622 Type 2 diabetes mellitus with other skin ulcer; T87.89 Other complications of amputation stump; E11.40 Type 2 diabetes mellitus with diabetic neuropathy, unspecified; E11.59 Type 2 diabetes mellitus with other circulatory complications; L97.212 Non-pressure chronic ulcer of right calf with fat layer exposed; L97.522 Non-pressure chronic ulcer of other part of left foot with fat layer exposed; L89.893 Pressure ulcer of other site, stage 3
CPT/HCPCS: A9270; G0463

== ENCOUNTER 2021-11-22 08:00 | Day surgery (SDC) | payer OTHER | END 2021-11-22 23:59 | disposition home or self-care (01) | LOC: WOUND 08:00 | DX: E11.621 Type 2 diabetes mellitus with foot ulcer (principal); E11.622 Type 2 diabetes mellitus with other skin ulcer; L97.422 Non-pressure chronic ulcer of left heel and midfoot with fat layer exposed; L97.522 Non-pressure chronic ulcer of other part of left foot with fat layer exposed; L97.212 Non-pressure chronic ulcer of right calf with fat layer exposed; L89.893 Pressure ulcer of other site, stage 3; E11.40 Type 2 diabetes mellitus with diabetic neuropathy, unspecified; E11.59 Type 2 diabetes mellitus with other circulatory complications; T87.89 Other complications of amputation stump | CPT/HCPCS: G0463 ==

== ENCOUNTER 2021-11-30 11:57 | Day surgery (SDC) | payer OTHER | END 2021-11-30 23:08 | disposition home or self-care (01) | LOC: WOUND 11:57 | DX: E11.621 Type 2 diabetes mellitus with foot ulcer (principal); E11.622 Type 2 diabetes mellitus with other skin ulcer; L97.522 Non-pressure chronic ulcer of other part of left foot with fat layer exposed; L97.829 Non-pressure chronic ulcer of other part of left lower leg with unspecified severity; T87.89 Other complications of amputation stump; E11.40 Type 2 diabetes mellitus with diabetic neuropathy, unspecified; E11.59 Type 2 diabetes mellitus with other circulatory complications; L97.212 Non-pressure chronic ulcer of right calf with fat layer exposed; L89.893 Pressure ulcer of other site, stage 3 | CPT/HCPCS: A9270 ==

== ENCOUNTER 2021-12-13 01:03 | Day surgery (SDC) | payer OTHER | END 2021-12-13 23:46 | disposition home or self-care (01) | LOC: WOUND 01:03 | DX: E11.621 Type 2 diabetes mellitus with foot ulcer (principal); E11.622 Type 2 diabetes mellitus with other skin ulcer; T87.89 Other complications of amputation stump; E11.40 Type 2 diabetes mellitus with diabetic neuropathy, unspecified; E11.59 Type 2 diabetes mellitus with other circulatory complications; L97.212 Non-pressure chronic ulcer of right calf with fat layer exposed; L97.522 Non-pressure chronic ulcer of other part of left foot with fat layer exposed | CPT/HCPCS: A9270 ==

== ENCOUNTER 2021-12-22 15:00 | Inpatient (IN) | payer OTHER ==
[~2021-12-22] VITALS: Ht 167.6 cm; Wt 95.6 kg
[~2021-12-22 15:00] MED LIST changes: -LOSARTAN POTAS100 M1 PO; +LOSARTAN POTAS100 MG PO; -Novolog100 UNIT/2; +Novolog100 UNIT/2 SC
[2021-12-22 15:39] LABS: BASOPHILS ABSOLUTE AUTO 0.07 K/mm3 (0.00-0.23); BASOPHILS PERCENT AUTO 1 % (0-2); EOSINOPHILS ABSOLUTE AUTO 0.72 K/mm3 (0.00-0.68); EOSINOPHILS PERCENT AUTO 6 % (0-6); Hematocrit 39.6 % (37.0-53.0); Hemoglobin 13.5 g/dL (13.5-17.5); IMMATURE GRAN ABSOLUTE AUTO 0.02 K/mm3 (0.00-0.10); IMMATURE GRAN PERCENT AUTO 0 % (0-1); LYMPHOCYTES ABSOLUTE AUTO 3.95 K/mm3 (0.84-5.20); LYMPHOCYTES PERCENT AUTO 33 % (21-46); MONOCYTES ABSOLUTE AUTO 0.85 K/mm3 (0.16-1.47); MONOCYTES PERCENT AUTO 7 % (4-13); Mean Corpuscular HGB 30.5 pg (26.0-34.0); Mean Corpuscular HGB Conc 34.1 g/dL (31.5-36.5); Mean Corpuscular Volume 89 fL (80-100); Mean Platelet Volume 10.1 fL (9.1-12.4); NEUTROPHILS ABSOLUTE AUTO 6.47 K/mm3 (1.96-9.15); NEUTROPHILS PERCENT AUTO 54 % (41-73); Platelet Count 348 K/mm3 (150-400); RDW Coefficient Variation 12.1 % (11.7-14.2); RDW Standard Deviation 39.7 fL (35.1-46.3); Red Blood Cell Count 4.43 M/mm3 (4.30-5.90); White Blood Cell Count 12.08 K/mm3 (4.00-11.30)
[2021-12-22 15:52] LABS: Alanine Aminotransfer (ALT/SGP 36 U/L (12-78); Albumin, Blood 3.4 g/dL (3.4-5.0); Albumin/Globulin Ratio 0.9 (0.8-1.8); Alk Phos 106 U/L (50-136); Anion Gap 5 mmol/L (6-16); Aspartate Aminotrans (AST/SGOT 18 U/L (12-37); Bilirubin, Total 0.3 mg/dL (0.1-1.0); Blood Urea Nitrogen 26 mg/dL (8-24); Bun/Creatinine Ratio 31.6 (12.0-20.0); CO2, Blood 28 mmol/L (21-32); Calcium, Blood 9.4 mg/dL (8.5-10.1); Chloride, Blood 104 mmol/L (98-108); Creatinine, Blood 0.82 mg/dL (0.60-1.20); Globulin, Blood 3.9 g/dL (2.2-4.0); Glomerular Filtration Rate >60 (60-); Glucose, Blood 196 mg/dL (70-99); Potassium, Blood 4.7 mmol/L (3.5-5.5); Sodium, Blood 137 mmol/L (136-145); Total Protein, Blood 7.3 g/dL (6.4-8.2)
[2021-12-22 16:41] LABS: Prothrombin Time Results 10.5 Sec (9.7-11.5)
[2021-12-22 17:56] LABS: Cholesterol 130 mg/dL (50-200); HDL Cholesterol 44 mg/dL (>39); LDL/HDL RATIO 1.3; Low Density Lipoprotein Chol 56 mg/dL (0-110); Triglycerides 148 mg/dL (30-160); Very Low Density Lipoprot Chol 29 mg/dL (6-32)
[2021-12-22] MEDS ORDERED: INSULANPEN SC (20:43)
[2021-12-23 04:45] LABS: BASOPHILS ABSOLUTE AUTO 0.06 K/mm3 (0.00-0.23); BASOPHILS PERCENT AUTO 1 % (0-2); EOSINOPHILS ABSOLUTE AUTO 0.62 K/mm3 (0.00-0.68); EOSINOPHILS PERCENT AUTO 7 % (0-6); Hemoglobin 12.6 g/dL (13.5-17.5); IMMATURE GRAN ABSOLUTE AUTO 0.02 K/mm3 (0.00-0.10); IMMATURE GRAN PERCENT AUTO 0 % (0-1); LYMPHOCYTES PERCENT AUTO 38 % (21-46); MONOCYTES ABSOLUTE AUTO 0.83 K/mm3 (0.16-1.47); MONOCYTES PERCENT AUTO 9 % (4-13); Mean Corpuscular HGB 30.2 pg (26.0-34.0); Mean Corpuscular HGB Conc 33.2 g/dL (31.5-36.5); Mean Corpuscular Volume 91 fL (80-100); Mean Platelet Volume 9.9 fL (9.1-12.4); NEUTROPHILS ABSOLUTE AUTO 4.08 K/mm3 (1.96-9.15); NEUTROPHILS PERCENT AUTO 45 % (41-73); Platelet Count 313 K/mm3 (150-400); RDW Coefficient Variation 12.3 % (11.7-14.2); RDW Standard Deviation 41.1 fL (35.1-46.3); Red Blood Cell Count 4.17 M/mm3 (4.30-5.90); White Blood Cell Count 9.01 K/mm3 (4.00-11.30)
[2021-12-23 05:18] LABS: Anion Gap 6 mmol/L (6-16); Blood Urea Nitrogen 25 mg/dL (8-24); Bun/Creatinine Ratio 29.3 (12.0-20.0); CO2, Blood 28 mmol/L (21-32); Calcium, Blood 9.2 mg/dL (8.5-10.1); Chloride, Blood 105 mmol/L (98-108); Creatinine, Blood 0.85 mg/dL (0.60-1.20); Glomerular Filtration Rate >60 (60-); Glucose, Blood 116 mg/dL (70-99); Potassium, Blood 4.3 mmol/L (3.5-5.5); Sodium, Blood 139 mmol/L (136-145)
--- NOTE | 2021-12-23 06:07 | NUR ---
SHIFT SUMMARY: ED ADMIT WITH CP. PATIENT ENDORSES DULL 2/10 LINGERING PAIN "NOTHING I WOULD COMPLAIN ABOUT" TELE = NSR. RBKA, L METATARSAL AMP. DIABETIC FOOT ULCERS TO LEFT FOOT, ABRASION TO LEFT WALKER, HEALED ULCER TO RIGHT STUMP, SURGICAL SITE TO FOREHEAD. PHOTOS TAKEN WITH PATIENTS PERMISSION AND PLACED IN CHART. PATIENT HAS BEEN NPO SINCE 4AM FOR STRESS TEST TODAY.
--- NOTE | 2021-12-23 17:36 | NUR ---
CONSULT CALLED DR FISCHER INFORMED OF CARDIOLOGY CONSULT REQUEST FROM DR NEELY.
--- NOTE | 2021-12-23 17:40 | NUR ---
SHIFT SUMMARY MR BROOKS IS ALERT, ORIENTATED TO SELF, MMC, SITUATION, NOT ORIENTATED TO MONTH OR YEAR. HE HAS DENIED CHEST PAIN OR SHORTNESS OF BREATH TODAY. STRESS TEST COMPLETED. CARDIAC ECHO DONE AT THE BEDSIDE. CONSULT CALLED TO JULIA FOR ABNORMAL STRESS TEST. HEALING WOUND TO RIGHT BKA, LEFT OPEN TO AIR. SMALL INCISIONAL AREAS ABOVE LEFT AND RIGHT EYES CLEANED AND REDRESSED. PT IS BLIND IN HIS RIGHT EYE, WEARS AN EYEPATCH. SMALL WOUNDS TO LEFT WALKER AND LEFT FOOT CLEANED AND REDRESSED. PT SAID HE HAS MINIMAL SENSATION TO HIS LEFT FOOT. STRONG UPPER BODY STRENGTH, HE IS ABLE TO TRANSFER INDEPENDENTLY TO HIS CHAIR. CONTINENT OF URINE. ABDOMEN SOFT AND NORMAL BM PER PT. ON TELEMETRY - SINUS RHYTHM PER EXPERIENCE DESIGN DIRECTOR CALLED AT 1745HRS. BED LOW, CALL LIGHT IN REACH.
--- NOTE | 2021-12-23 19:22 | NUR ---
AT 1855HRS MR BROOKS C/O 10 MID CHEST PRESSURE. NO RADIATION OF PRESSURE, NO DIAPHURESIS, C/O FEELING LIKE HE WAS SLIGHTLY SOB, BUT TALKING IN FULL SENTENCES, O2 SAT 98% ON ROOM AIR, NO OBVIOUS SOB. I CALLED DR MORILLO, SHE ASKED FOR A TROPONIM AND NOTIFY DR FISCHER. DR FISCHER ASKED FOR AN ECG WELL TROPONIM, WHICH HAS BEEN DONE. VS CHECKED AT THE INITIAL COMPLAINT. CARDING SUPERVISOR CALLED AT THE TIME - NOTHING NEW SHOWING UP ON TELEMETRY PER TT.
--- NOTE | 2021-12-23 22:52 | NUR ---
2203- CONFIRMED W/DR. FISCHER VIA TELEPHONE THAT NITRO-BID WAS SCHEDULED AND NOT A PRN MEDICATION FOR CHEST PAIN WELL LOVENOX OK TO GIVE WITH EXPECTED CARDIAC CATH IN AM. NO FURTHER ORDERS AT THIS TIME.
[2021-12-24 05:21] LABS: BASOPHILS ABSOLUTE AUTO 0.05 K/mm3 (0.00-0.23); BASOPHILS PERCENT AUTO 1 % (0-2); EOSINOPHILS ABSOLUTE AUTO 0.69 K/mm3 (0.00-0.68); EOSINOPHILS PERCENT AUTO 8 % (0-6); Hematocrit 38.5 % (37.0-53.0); Hemoglobin 12.6 g/dL (13.5-17.5); IMMATURE GRAN ABSOLUTE AUTO 0.02 K/mm3 (0.00-0.10); IMMATURE GRAN PERCENT AUTO 0 % (0-1); LYMPHOCYTES ABSOLUTE AUTO 3.02 K/mm3 (0.84-5.20); LYMPHOCYTES PERCENT AUTO 34 % (21-46); MONOCYTES ABSOLUTE AUTO 0.76 K/mm3 (0.16-1.47); MONOCYTES PERCENT AUTO 9 % (4-13); Mean Corpuscular HGB 29.9 pg (26.0-34.0); Mean Corpuscular HGB Conc 32.7 g/dL (31.5-36.5); Mean Corpuscular Volume 91 fL (80-100); Mean Platelet Volume 11.2 fL (9.1-12.4); NEUTROPHILS ABSOLUTE AUTO 4.44 K/mm3 (1.96-9.15); NEUTROPHILS PERCENT AUTO 49 % (41-73); Platelet Count 270 K/mm3 (150-400); RDW Coefficient Variation 12.2 % (11.7-14.2); RDW Standard Deviation 41.1 fL (35.1-46.3); Red Blood Cell Count 4.21 M/mm3 (4.30-5.90); White Blood Cell Count 8.98 K/mm3 (4.00-11.30)
[2021-12-24 05:36] LABS: International Normalized Ratio 1.02; Prothrombin Time Results 10.7 Sec (9.7-11.5)
[2021-12-24 05:52] LABS: Anion Gap 6 mmol/L (6-16); Blood Urea Nitrogen 31 mg/dL (8-24); Bun/Creatinine Ratio 36.9 (12.0-20.0); CO2, Blood 28 mmol/L (21-32); Calcium, Blood 9.5 mg/dL (8.5-10.1); Chloride, Blood 100 mmol/L (98-108); Creatinine, Blood 0.84 mg/dL (0.60-1.20); Glomerular Filtration Rate >60 (60-); Glucose, Blood 303 mg/dL (70-99); Potassium, Blood 4.7 mmol/L (3.5-5.5); Sodium, Blood 134 mmol/L (136-145)
--- NOTE | 2021-12-24 08:09 | NUR ---
MD CALL CALLED DR GARLAND - BILL BURNHAM THIS AM PRE DENTAL SECRETARY. OK TO GIVE S/S INSULIN COVERAGE WHILE NPO PER DR GARLAND.
--- NOTE | 2021-12-24 10:05 | NUR ---
CALL RECIEVED CALL FROM DR MONTES, REGISTERED MIDWIFE. PT CAN EAT AND DRINK UP TO 1PM TODAY, THEN NPO. SHE IS GOING TO PUT IN PLAVIX 600MG PO ORDER TO BE GIVEN THIS AM.
--- NOTE | 2021-12-24 16:17 | NUR ---
RN NOTE MR BROOKS IS ALERT, ORIENTATED TO SELF, SITUATION, PLACE, NOT DATE. PLAN FOR [facility] ADF CONSULTANT TODAY, DELAYED, BUT TRANSFERED TO ORACLE ADF CONSULTANT AT 1620HRS. UP INDEPENDENT IN HIS ROOM TODAY IN HIS WHEELCHAIR. ACCUCHECKS DONE AND COVERED PER OCT. IVF RAN TODAY AT 125CC/HR, VOIDED WITHOUT PROBLEMS. NO CHEST PAIN, NO SOB, NO NAUSEA. NPO FROM 1PM FOR ORACLE ADF CONSULTANT.
--- NOTE | 2021-12-24 17:14 | NUR ---
POST ANGIO/PCU ARRIVAL PT BACK FROM ANGIO AT 1710, RIGHT RADIAL SITE WNL, TR BAND AND ARM BOARD IN PLACE. A&Ox4, VSS, SPO2>92% RA, SR 70'S. CALL LIGHT IN REACH, BED IN LOWEST POSITION.
--- NOTE | 2021-12-24 18:23 | NUR ---
SHIFT SUMMARY PT A&Ox4, VSS, SPO2>92% RA, SR 70'S. RIGHT RADIAL SITE WNL. ARM BOARD AND TR BAND IN PLACE. NO CHANGES. WILL CONTINUE TO MONITOR AND PROVIDE CARE UNTIL REPORT TO NOC.
--- NOTE | 2021-12-24 22:16 | NUR ---
1999 TR band off without issues, VSS, generalized/ neuropathy pain managed well, no Chest Pain but is on scheduled nitro paste. Room Air with good sats. Will continue to monitor Tiburcio Baez RN
--- NOTE | 2021-12-25 05:32 | NUR ---
Overnight without issues, VSS, no CP, room air, R- Radial site WNL, pt states he is not comfortable discharging today, he has to get things in order prior to going back home. urine output WNL, pt states he is going more frequently(IV fluids @125), will continue to monitor MADELEINE Dey
[2021-12-25] MEDS ORDERED: LIPITOR80 MG PO (11:04)
[2021-12-25] MEDS ORDERED: ASPI81CH PO (11:19)
[2021-12-25] MEDS ORDERED: METO50 PO (11:20)
[2021-12-25] MEDS ORDERED: CLOP75 PO (11:20)
--- NOTE | 2021-12-25 12:09 | NUR ---
DISCHARGE SUMMARY: PT CLEARED FOR DISCHARGE, IV ACCESS DC'd WNL, PT DRESSES INDEPENDENTLY IN ROOM. PT PROVIDED WITH PAPERWORK AND INSTRUCTIONS, ALL INSTRUCTIONS AND MEDICATION CHANGES REVIEWED BEDSIDE WITH PT. PT V/U AND STATES HE WILL HAVE HIS CAREGIVER HELP HIM AT HOME. ALL QUESTIONS ANSWERED. TRANSPORT ARRIVES FOR PT, PT ESCORTED FROM UNIT IN NO ACUTE DISTRESS AT APPROX 1145 TODAY.
== END 2021-12-25 11:46 | disposition home or self-care (01) | DRG 287 ==
LOC: ER 15:00 → MEDS 15:01 → PCU 12-24 16:20
PROVIDERS: Internal Medicine Cardiovascular Disease; Physician Assistant; Student in an Organized Health Care Education/Training Program; ADMIT Family Medicine
PROC: 4A023N7 Measurement of Cardiac Sampling and Pressure, Left Heart, Percutaneous Approach (ICD-10-PCS; principal; 2021-12-24)
PROC: B2011ZZ Plain Radiography of Multiple Coronary Arteries using Low Osmolar Contrast (ICD-10-PCS; 2021-12-24)
DX: I25.110 Atherosclerotic heart disease of native coronary artery with unstable angina pectoris (principal); R07.89 Other chest pain; I65.21 Occlusion and stenosis of right carotid artery; E11.40 Type 2 diabetes mellitus with diabetic neuropathy, unspecified; D72.829 Elevated white blood cell count, unspecified; I16.0 Hypertensive urgency; E78.00 Pure hypercholesterolemia, unspecified; E11.65 Type 2 diabetes mellitus with hyperglycemia; F17.210 Nicotine dependence, cigarettes, uncomplicated; G89.29 Other chronic pain; E11.51 Type 2 diabetes mellitus with diabetic peripheral angiopathy without gangrene; E11.319 Type 2 diabetes mellitus with unspecified diabetic retinopathy without macular edema; E78.5 Hyperlipidemia, unspecified; M54.50 Low back pain, unspecified; Z71.6 Tobacco abuse counseling; Z89.432 Acquired absence of left foot; Z89.511 Acquired absence of right leg below knee; Z79.4 Long term (current) use of insulin; Z79.899 Other long term (current) drug therapy
CPT/HCPCS: 36415; 71046; 76937; 78452; 80048; 80053; 80061; 82947; 83036; 84443; 84484; 85025; 85610; 93005; 93010; 93017; 93306; 93454; 94760; 96372; 96374; 99152; 99153; 99285-25; A9270; A9500; C1769; C1887; C1894; G0378; J0706; J1644; J1650; J1815; J2250; J2785; J3010; J7030; Q9967

== ENCOUNTER 2021-12-27 03:04 | Day surgery (SDC) | payer OTHER ==
[~2021-12-27 03:04] MED LIST changes: +CLOP75 PO; +LIPITOR80 MG PO; +METO50 PO
== END 2021-12-27 23:29 | disposition home or self-care (01) ==
LOC: WOUND 03:04
DX: E11.621 Type 2 diabetes mellitus with foot ulcer (principal); L97.522 Non-pressure chronic ulcer of other part of left foot with fat layer exposed; E11.622 Type 2 diabetes mellitus with other skin ulcer; L97.212 Non-pressure chronic ulcer of right calf with fat layer exposed; T87.89 Other complications of amputation stump; E11.40 Type 2 diabetes mellitus with diabetic neuropathy, unspecified; E11.59 Type 2 diabetes mellitus with other circulatory complications
CPT/HCPCS: A9270; G0463

== ENCOUNTER 2021-12-29 09:35 | Emergency (ER) | payer OTHER ==
[~2021-12-29] VITALS: Ht 170.2 cm; Wt 83.5 kg
[2021-12-29] MEDS ORDERED: ERYT1OIN RIGHTEYE (11:18)
== END 2021-12-29 11:43 | disposition home or self-care (01) ==
LOC: ER 09:35
DX: H02.841 Edema of right upper eyelid (principal); H54.40 Blindness, one eye, unspecified eye; I10 Essential (primary) hypertension; E11.40 Type 2 diabetes mellitus with diabetic neuropathy, unspecified; E78.00 Pure hypercholesterolemia, unspecified; F17.210 Nicotine dependence, cigarettes, uncomplicated; Z79.899 Other long term (current) drug therapy; Z79.4 Long term (current) use of insulin; Z79.82 Long term (current) use of aspirin
CPT/HCPCS: 99283

== ENCOUNTER 2022-01-10 08:00 | Day surgery (SDC) | payer OTHER ==
[~2022-01-10 08:00] MED LIST changes: +ERYT1OIN RIGHTEYE
== END 2022-01-10 23:59 | disposition home or self-care (01) ==
LOC: WOUND 08:00
DX: E11.621 Type 2 diabetes mellitus with foot ulcer (principal); L97.522 Non-pressure chronic ulcer of other part of left foot with fat layer exposed; E11.622 Type 2 diabetes mellitus with other skin ulcer; E11.40 Type 2 diabetes mellitus with diabetic neuropathy, unspecified; E11.59 Type 2 diabetes mellitus with other circulatory complications; L97.212 Non-pressure chronic ulcer of right calf with fat layer exposed; E66.9 Obesity, unspecified; Z68.29 Body mass index [BMI] 29.0-29.9, adult
CPT/HCPCS: A9270

== ENCOUNTER 2022-01-24 01:12 | Day surgery (SDC) | payer OTHER | END 2022-01-24 23:23 | disposition home or self-care (01) | LOC: WOUND 01:12 | DX: E11.621 Type 2 diabetes mellitus with foot ulcer (principal); L97.422 Non-pressure chronic ulcer of left heel and midfoot with fat layer exposed; E11.40 Type 2 diabetes mellitus with diabetic neuropathy, unspecified; E11.59 Type 2 diabetes mellitus with other circulatory complications; Z89.511 Acquired absence of right leg below knee | CPT/HCPCS: G0463 ==

== ENCOUNTER 2022-02-21 01:00 | Day surgery (SDC) | payer OTHER | END 2022-02-21 05:33 | disposition home or self-care (01) | LOC: WOUND 01:00 | DX: E11.621 Type 2 diabetes mellitus with foot ulcer (principal); E11.40 Type 2 diabetes mellitus with diabetic neuropathy, unspecified; L97.522 Non-pressure chronic ulcer of other part of left foot with fat layer exposed; E11.59 Type 2 diabetes mellitus with other circulatory complications | CPT/HCPCS: A9270 ==

== ENCOUNTER → 2022-03-07 | Day surgery (SDC) | payer OTHER | LOC: WOUND 03:12 | DX: E11.621 Type 2 diabetes mellitus with foot ulcer (principal); L97.422 Non-pressure chronic ulcer of left heel and midfoot with fat layer exposed; E11.40 Type 2 diabetes mellitus with diabetic neuropathy, unspecified; E11.59 Type 2 diabetes mellitus with other circulatory complications | CPT/HCPCS: A9270 ==

== ENCOUNTER 2022-03-21 01:01 | Day surgery (SDC) | payer OTHER | END 2022-03-22 | disposition home or self-care (01) | LOC: WOUND 01:01 | DX: E11.621 Type 2 diabetes mellitus with foot ulcer (principal); L97.522 Non-pressure chronic ulcer of other part of left foot with fat layer exposed; E11.40 Type 2 diabetes mellitus with diabetic neuropathy, unspecified; E11.59 Type 2 diabetes mellitus with other circulatory complications | CPT/HCPCS: A9270 ==

== ENCOUNTER 2022-03-28 00:41 | Day surgery (SDC) | payer OTHER | END 2022-03-28 12:59 | disposition home or self-care (01) | LOC: WOUND 00:41 | DX: E11.621 Type 2 diabetes mellitus with foot ulcer (principal); L97.522 Non-pressure chronic ulcer of other part of left foot with fat layer exposed; E11.40 Type 2 diabetes mellitus with diabetic neuropathy, unspecified; E11.59 Type 2 diabetes mellitus with other circulatory complications | CPT/HCPCS: A9270; G0463 ==

== ENCOUNTER 2022-04-11 04:10 | Day surgery (SDC) | payer OTHER | END 2022-04-11 23:24 | disposition home or self-care (01) | LOC: WOUND 04:10 | DX: E11.621 Type 2 diabetes mellitus with foot ulcer (principal); E11.40 Type 2 diabetes mellitus with diabetic neuropathy, unspecified; E11.59 Type 2 diabetes mellitus with other circulatory complications; L97.522 Non-pressure chronic ulcer of other part of left foot with fat layer exposed ==

== ENCOUNTER 2022-04-17 01:11 | Day surgery (SDC) | payer OTHER | END 2022-04-17 23:07 | disposition home or self-care (01) | LOC: WOUND 01:11 | DX: E11.622 Type 2 diabetes mellitus with other skin ulcer (principal); L97.522 Non-pressure chronic ulcer of other part of left foot with fat layer exposed; E11.40 Type 2 diabetes mellitus with diabetic neuropathy, unspecified; E11.59 Type 2 diabetes mellitus with other circulatory complications | CPT/HCPCS: G0463 ==

== ENCOUNTER 2022-04-21 01:07 | Day surgery (SDC) | payer OTHER | END 2022-04-21 22:57 | disposition home or self-care (01) | LOC: WOUND 01:07 | DX: E11.621 Type 2 diabetes mellitus with foot ulcer (principal); L97.522 Non-pressure chronic ulcer of other part of left foot with fat layer exposed; E11.40 Type 2 diabetes mellitus with diabetic neuropathy, unspecified; E11.59 Type 2 diabetes mellitus with other circulatory complications | CPT/HCPCS: G0463 ==

== ENCOUNTER 2022-05-01 01:14 | Day surgery (SDC) | payer OTHER | END 2022-05-01 23:59 | disposition home or self-care (01) | LOC: WOUND 01:14 | DX: E11.621 Type 2 diabetes mellitus with foot ulcer (principal); E11.40 Type 2 diabetes mellitus with diabetic neuropathy, unspecified; E11.59 Type 2 diabetes mellitus with other circulatory complications; L97.522 Non-pressure chronic ulcer of other part of left foot with fat layer exposed | CPT/HCPCS: G0463 ==

== ENCOUNTER 2022-05-03 07:51 | Day surgery (SDC) | payer OTHER | END 2022-05-03 23:37 | disposition home or self-care (01) | LOC: WOUND 07:51 | DX: E11.621 Type 2 diabetes mellitus with foot ulcer (principal); E11.40 Type 2 diabetes mellitus with diabetic neuropathy, unspecified; E11.59 Type 2 diabetes mellitus with other circulatory complications; L97.522 Non-pressure chronic ulcer of other part of left foot with fat layer exposed | CPT/HCPCS: G0463 ==

== ENCOUNTER 2022-05-15 01:48 | Day surgery (SDC) | payer OTHER | END 2022-05-15 23:01 | disposition home or self-care (01) | LOC: WOUND 01:48 | DX: E11.621 Type 2 diabetes mellitus with foot ulcer (principal); L97.522 Non-pressure chronic ulcer of other part of left foot with fat layer exposed; E11.40 Type 2 diabetes mellitus with diabetic neuropathy, unspecified; E11.59 Type 2 diabetes mellitus with other circulatory complications | CPT/HCPCS: G0463 ==

== ENCOUNTER 2022-05-17 01:46 | Day surgery (SDC) | payer OTHER | END 2022-05-17 23:36 | disposition home or self-care (01) | LOC: WOUND 01:46 | DX: E11.621 Type 2 diabetes mellitus with foot ulcer (principal); L97.522 Non-pressure chronic ulcer of other part of left foot with fat layer exposed; E11.40 Type 2 diabetes mellitus with diabetic neuropathy, unspecified; E11.59 Type 2 diabetes mellitus with other circulatory complications | CPT/HCPCS: G0463 ==

== ENCOUNTER 2022-05-19 03:03 | Day surgery (SDC) | payer OTHER | END 2022-05-20 00:29 | disposition home or self-care (01) | LOC: WOUND 03:03 | DX: E11.621 Type 2 diabetes mellitus with foot ulcer (principal); L97.522 Non-pressure chronic ulcer of other part of left foot with fat layer exposed; E11.40 Type 2 diabetes mellitus with diabetic neuropathy, unspecified | CPT/HCPCS: A9270; G0463 ==

== ENCOUNTER 2022-05-22 00:32 | Day surgery (SDC) | payer OTHER | END 2022-05-22 22:55 | disposition home or self-care (01) | LOC: WOUND 00:32 | DX: E11.621 Type 2 diabetes mellitus with foot ulcer (principal); L97.522 Non-pressure chronic ulcer of other part of left foot with fat layer exposed; E11.40 Type 2 diabetes mellitus with diabetic neuropathy, unspecified; E11.59 Type 2 diabetes mellitus with other circulatory complications | CPT/HCPCS: G0463 ==

== ENCOUNTER 2022-05-26 02:12 | Day surgery (SDC) | payer OTHER | END 2022-05-26 23:59 | disposition home or self-care (01) | LOC: WOUND 02:12 | DX: E11.621 Type 2 diabetes mellitus with foot ulcer (principal); L97.522 Non-pressure chronic ulcer of other part of left foot with fat layer exposed; E11.40 Type 2 diabetes mellitus with diabetic neuropathy, unspecified; E11.59 Type 2 diabetes mellitus with other circulatory complications | CPT/HCPCS: G0463 ==

== ENCOUNTER 2022-05-31 04:13 | Day surgery (SDC) | payer OTHER | END 2022-05-31 22:52 | disposition home or self-care (01) | LOC: WOUND 04:13 | DX: E11.621 Type 2 diabetes mellitus with foot ulcer (principal); L97.522 Non-pressure chronic ulcer of other part of left foot with fat layer exposed; E11.40 Type 2 diabetes mellitus with diabetic neuropathy, unspecified; E11.59 Type 2 diabetes mellitus with other circulatory complications | CPT/HCPCS: G0463 ==

== ENCOUNTER 2022-06-02 03:21 | Day surgery (SDC) | payer OTHER | END 2022-06-02 23:33 | disposition home or self-care (01) | LOC: WOUND 03:21 | DX: E11.621 Type 2 diabetes mellitus with foot ulcer (principal); L97.522 Non-pressure chronic ulcer of other part of left foot with fat layer exposed; E11.40 Type 2 diabetes mellitus with diabetic neuropathy, unspecified; E11.59 Type 2 diabetes mellitus with other circulatory complications | CPT/HCPCS: G0463 ==

== ENCOUNTER 2022-06-05 09:13 | Day surgery (SDC) | payer OTHER | END 2022-06-05 23:22 | disposition home or self-care (01) | LOC: WOUND 09:13 | DX: E11.621 Type 2 diabetes mellitus with foot ulcer (principal); E11.40 Type 2 diabetes mellitus with diabetic neuropathy, unspecified; E11.59 Type 2 diabetes mellitus with other circulatory complications; L97.522 Non-pressure chronic ulcer of other part of left foot with fat layer exposed | CPT/HCPCS: G0463 ==

== ENCOUNTER 2022-06-07 02:16 | Day surgery (SDC) | payer OTHER | END 2022-06-07 22:57 | disposition home or self-care (01) | LOC: WOUND 02:16 | DX: E11.621 Type 2 diabetes mellitus with foot ulcer (principal); E11.40 Type 2 diabetes mellitus with diabetic neuropathy, unspecified; L97.522 Non-pressure chronic ulcer of other part of left foot with fat layer exposed; Z89.422 Acquired absence of other left toe(s) | CPT/HCPCS: A9270 ==

== ENCOUNTER 2022-06-09 01:21 | Day surgery (SDC) | payer OTHER | END 2022-06-09 23:24 | disposition home or self-care (01) | LOC: WOUND 01:21 | DX: E11.621 Type 2 diabetes mellitus with foot ulcer (principal); L97.522 Non-pressure chronic ulcer of other part of left foot with fat layer exposed; E11.40 Type 2 diabetes mellitus with diabetic neuropathy, unspecified; E11.59 Type 2 diabetes mellitus with other circulatory complications; Z89.422 Acquired absence of other left toe(s) | CPT/HCPCS: G0463 ==

== ENCOUNTER 2022-06-12 02:55 | Day surgery (SDC) | payer OTHER | END 2022-06-12 23:09 | disposition home or self-care (01) | LOC: WOUND 02:55 | DX: E11.621 Type 2 diabetes mellitus with foot ulcer (principal); L97.522 Non-pressure chronic ulcer of other part of left foot with fat layer exposed; E11.40 Type 2 diabetes mellitus with diabetic neuropathy, unspecified; E11.59 Type 2 diabetes mellitus with other circulatory complications; Z89.422 Acquired absence of other left toe(s) | CPT/HCPCS: G0463 ==

== ENCOUNTER 2022-06-14 02:07 | Day surgery (SDC) | payer OTHER | END 2022-06-14 22:50 | disposition home or self-care (01) | LOC: WOUND 02:07 | DX: E11.621 Type 2 diabetes mellitus with foot ulcer (principal); L97.522 Non-pressure chronic ulcer of other part of left foot with fat layer exposed; E11.40 Type 2 diabetes mellitus with diabetic neuropathy, unspecified; Z89.422 Acquired absence of other left toe(s) | CPT/HCPCS: G0463 ==

== ENCOUNTER 2022-06-16 01:58 | Day surgery (SDC) | payer OTHER | END 2022-06-16 23:17 | disposition home or self-care (01) | LOC: WOUND 01:58 | DX: E11.621 Type 2 diabetes mellitus with foot ulcer (principal); L97.522 Non-pressure chronic ulcer of other part of left foot with fat layer exposed; E11.40 Type 2 diabetes mellitus with diabetic neuropathy, unspecified; E11.59 Type 2 diabetes mellitus with other circulatory complications; Z89.422 Acquired absence of other left toe(s) | CPT/HCPCS: G0463 ==

== ENCOUNTER 2022-06-23 01:31 | Day surgery (SDC) | payer OTHER | END 2022-06-23 23:12 | disposition home or self-care (01) | LOC: WOUND 01:31 | DX: E11.621 Type 2 diabetes mellitus with foot ulcer (principal); L97.522 Non-pressure chronic ulcer of other part of left foot with fat layer exposed; E11.40 Type 2 diabetes mellitus with diabetic neuropathy, unspecified; E11.59 Type 2 diabetes mellitus with other circulatory complications; Z89.422 Acquired absence of other left toe(s) | CPT/HCPCS: G0463 ==

== ENCOUNTER 2022-06-28 02:16 | Day surgery (SDC) | payer OTHER | END 2022-06-28 23:23 | disposition home or self-care (01) | LOC: WOUND 02:16 | DX: E11.621 Type 2 diabetes mellitus with foot ulcer (principal); E11.40 Type 2 diabetes mellitus with diabetic neuropathy, unspecified; E11.59 Type 2 diabetes mellitus with other circulatory complications; L97.522 Non-pressure chronic ulcer of other part of left foot with fat layer exposed; Z89.422 Acquired absence of other left toe(s) | CPT/HCPCS: G0463 ==

== ENCOUNTER 2022-06-30 01:16 | Day surgery (SDC) | payer OTHER | END 2022-06-30 23:13 | disposition home or self-care (01) | LOC: WOUND 01:16 | DX: E11.621 Type 2 diabetes mellitus with foot ulcer (principal); E11.40 Type 2 diabetes mellitus with diabetic neuropathy, unspecified; E11.59 Type 2 diabetes mellitus with other circulatory complications; L97.522 Non-pressure chronic ulcer of other part of left foot with fat layer exposed; Z89.422 Acquired absence of other left toe(s) | CPT/HCPCS: G0463 ==

== ENCOUNTER 2022-07-01 23:18 | Emergency (ER) | payer OTHER ==
[~2022-07-01] VITALS: Ht 157.5 cm; Wt 108.9 kg
== END 2022-07-02 01:57 | disposition home or self-care (01) ==
LOC: ER 23:18
DX: E11.649 Type 2 diabetes mellitus with hypoglycemia without coma (principal); F17.200 Nicotine dependence, unspecified, uncomplicated; Z79.4 Long term (current) use of insulin; Z79.82 Long term (current) use of aspirin; Z79.899 Other long term (current) drug therapy
CPT/HCPCS: 82947

== ENCOUNTER 2022-07-03 01:44 | Day surgery (SDC) | payer OTHER | END 2022-07-03 23:35 | disposition home or self-care (01) | LOC: WOUND | DX: E11.621 Type 2 diabetes mellitus with foot ulcer (principal); E11.40 Type 2 diabetes mellitus with diabetic neuropathy, unspecified; E11.59 Type 2 diabetes mellitus with other circulatory complications; L97.522 Non-pressure chronic ulcer of other part of left foot with fat layer exposed; Z89.422 Acquired absence of other left toe(s) | CPT/HCPCS: A9270 ==

== ENCOUNTER 2022-07-05 02:26 | Day surgery (SDC) | payer OTHER | END 2022-07-05 23:29 | disposition home or self-care (01) | LOC: WOUND 02:26 | DX: E11.621 Type 2 diabetes mellitus with foot ulcer (principal); E11.40 Type 2 diabetes mellitus with diabetic neuropathy, unspecified; E11.59 Type 2 diabetes mellitus with other circulatory complications; L97.522 Non-pressure chronic ulcer of other part of left foot with fat layer exposed; Z89.422 Acquired absence of other left toe(s) | CPT/HCPCS: G0463 ==

== ENCOUNTER 2022-07-07 00:47 | Day surgery (SDC) | payer OTHER | END 2022-07-07 22:49 | disposition home or self-care (01) | LOC: WOUND 00:47 | DX: E11.621 Type 2 diabetes mellitus with foot ulcer (principal); E11.40 Type 2 diabetes mellitus with diabetic neuropathy, unspecified; E11.59 Type 2 diabetes mellitus with other circulatory complications; L97.522 Non-pressure chronic ulcer of other part of left foot with fat layer exposed; Z89.422 Acquired absence of other left toe(s) | CPT/HCPCS: G0463 ==

== ENCOUNTER 2022-07-21 02:04 | Day surgery (SDC) | payer OTHER | END 2022-07-21 22:53 | disposition home or self-care (01) | LOC: WOUND 02:04 | DX: E11.621 Type 2 diabetes mellitus with foot ulcer (principal); L97.522 Non-pressure chronic ulcer of other part of left foot with fat layer exposed; E11.40 Type 2 diabetes mellitus with diabetic neuropathy, unspecified; E11.59 Type 2 diabetes mellitus with other circulatory complications; Z89.422 Acquired absence of other left toe(s) | CPT/HCPCS: A9270; G0463 ==

== ENCOUNTER 2022-07-28 00:33 | Day surgery (SDC) | payer OTHER | END 2022-07-28 23:06 | disposition home or self-care (01) | LOC: WOUND 00:33 | DX: E11.621 Type 2 diabetes mellitus with foot ulcer (principal); L97.422 Non-pressure chronic ulcer of left heel and midfoot with fat layer exposed; E11.40 Type 2 diabetes mellitus with diabetic neuropathy, unspecified; E11.59 Type 2 diabetes mellitus with other circulatory complications; Z89.422 Acquired absence of other left toe(s) | CPT/HCPCS: A9270 ==

== ENCOUNTER 2022-08-04 01:09 | Day surgery (SDC) | payer OTHER | END 2022-08-04 23:07 | disposition home or self-care (01) | LOC: WOUND 01:09 | DX: E11.621 Type 2 diabetes mellitus with foot ulcer (principal); E11.40 Type 2 diabetes mellitus with diabetic neuropathy, unspecified; E11.59 Type 2 diabetes mellitus with other circulatory complications; L97.509 Non-pressure chronic ulcer of other part of unspecified foot with unspecified severity; Z89.422 Acquired absence of other left toe(s) | CPT/HCPCS: G0463 ==

== ENCOUNTER 2022-08-11 01:30 | Day surgery (SDC) | payer OTHER | END 2022-08-12 23:31 | disposition home or self-care (01) | LOC: WOUND 01:30 | DX: E11.621 Type 2 diabetes mellitus with foot ulcer (principal); L97.422 Non-pressure chronic ulcer of left heel and midfoot with fat layer exposed; E11.40 Type 2 diabetes mellitus with diabetic neuropathy, unspecified; Z89.422 Acquired absence of other left toe(s) | CPT/HCPCS: G0463 ==

== ENCOUNTER 2022-08-23 18:39 | Emergency (ER) | payer OTHER ==
[~2022-08-23] VITALS: Ht 170.2 cm; Wt 99.8 kg
[2022-08-23 19:39] LABS: BASOPHILS ABSOLUTE AUTO 0.06 K/mm3 (0.00-0.23); BASOPHILS PERCENT AUTO 1 % (0-2); EOSINOPHILS PERCENT AUTO 11 % (0-6); Hematocrit 40.1 % (37.0-53.0); Hemoglobin 13.7 g/dL (13.5-17.5); IMMATURE GRAN ABSOLUTE AUTO 0.02 K/mm3 (0.00-0.10); IMMATURE GRAN PERCENT AUTO 0 % (0-1); LYMPHOCYTES ABSOLUTE AUTO 3.08 K/mm3 (0.84-5.20); LYMPHOCYTES PERCENT AUTO 30 % (21-46); MONOCYTES PERCENT AUTO 9 % (4-13); Mean Corpuscular HGB Conc 34.2 g/dL (31.5-36.5); Mean Corpuscular Volume 91 fL (80-100); Mean Platelet Volume 10.4 fL (9.1-12.4); NEUTROPHILS ABSOLUTE AUTO 5.07 K/mm3 (1.96-9.15); NEUTROPHILS PERCENT AUTO 50 % (41-73); Platelet Count 291 K/mm3 (150-400); RDW Coefficient Variation 12.7 % (11.7-14.2); RDW Standard Deviation 41.3 fL (35.1-46.3); Red Blood Cell Count 4.42 M/mm3 (4.30-5.90); White Blood Cell Count 10.23 K/mm3 (4.00-11.30)
[2022-08-23 20:18] LABS: Albumin, Blood 3.8 g/dL (3.4-5.0); Albumin/Globulin Ratio 1.1 (0.8-1.8); Beta-hydroxybutyrate 2.4 mg/dL (0.2-2.8); Bilirubin, Total 0.3 mg/dL (0.1-1.0); Bun/Creatinine Ratio 30.3 (12.0-20.0); Creatinine, Blood 1.22 mg/dL (0.60-1.20); Globulin, Blood 3.6 g/dL (2.2-4.0); Potassium, Blood 4.4 mmol/L (3.5-5.5); Total Protein, Blood 7.4 g/dL (6.4-8.2)
[2022-08-23 21:19] LABS: Source, Urine Clean Catch
[2022-08-23 21:21] LABS: Appearance, Urine Clear (Clear); Bilirubin, Urine Neg (Neg); Blood, Urine Neg (Neg); Color, Urine Yellow (P-Yellow); Glucose Qualitative, Urine 4+ (Neg); Ketones, Urine Neg (Neg); Leukocyte Esterase, Urine Neg (Neg); Nitrite, Urine Neg (Neg); Protein, Urine 1+ (Neg); Specific Gravity, Urine 1.015 (1.003-1.022); Urobilinogen, Urine NORM (Normal)
== END 2022-08-23 23:10 | disposition home or self-care (01) ==
LOC: ER 18:39
PROVIDERS: Student in an Organized Health Care Education/Training Program
DX: E11.65 Type 2 diabetes mellitus with hyperglycemia (principal); E11.40 Type 2 diabetes mellitus with diabetic neuropathy, unspecified; I10 Essential (primary) hypertension; E78.00 Pure hypercholesterolemia, unspecified; F17.200 Nicotine dependence, unspecified, uncomplicated; Z79.4 Long term (current) use of insulin; Z79.84 Long term (current) use of oral hypoglycemic drugs; Z79.899 Other long term (current) drug therapy
CPT/HCPCS: 36415; 71046; 80053; 82010; 82947; 85025; 93005; 93010

== ENCOUNTER 2022-09-22 01:50 | Day surgery (SDC) | payer OTHER | END 2022-09-22 22:36 | disposition home or self-care (01) | LOC: WOUND 01:50 | DX: E11.621 Type 2 diabetes mellitus with foot ulcer (principal); L97.422 Non-pressure chronic ulcer of left heel and midfoot with fat layer exposed; E11.40 Type 2 diabetes mellitus with diabetic neuropathy, unspecified; E11.59 Type 2 diabetes mellitus with other circulatory complications; Z89.422 Acquired absence of other left toe(s) | CPT/HCPCS: A9270; G0463 ==

== ENCOUNTER 2022-09-29 00:50 | Day surgery (SDC) | payer OTHER | END 2022-09-30 22:43 | disposition home or self-care (01) | LOC: WOUND 00:50 | DX: E11.621 Type 2 diabetes mellitus with foot ulcer (principal); L97.423 Non-pressure chronic ulcer of left heel and midfoot with necrosis of muscle; E11.40 Type 2 diabetes mellitus with diabetic neuropathy, unspecified; E11.59 Type 2 diabetes mellitus with other circulatory complications; Z89.422 Acquired absence of other left toe(s) | CPT/HCPCS: G0463 ==

== ENCOUNTER 2022-10-18 11:46 | Inpatient (IN) | payer OTHER ==
[~2022-10-18] VITALS: Ht 157.5 cm; Wt 103.6 kg
[2022-10-18 12:22] LABS: BASOPHILS ABSOLUTE AUTO 0.06 K/mm3 (0.00-0.23); BASOPHILS PERCENT AUTO 0 % (0-2); EOSINOPHILS ABSOLUTE AUTO 0.03 K/mm3 (0.00-0.68); EOSINOPHILS PERCENT AUTO 0 % (0-6); Hematocrit 32.1 % (37.0-53.0); Hemoglobin 10.9 g/dL (13.5-17.5); IMMATURE GRAN ABSOLUTE AUTO 0.18 K/mm3 (0.00-0.10); IMMATURE GRAN PERCENT AUTO 1 % (0-1); LYMPHOCYTES ABSOLUTE AUTO 1.72 K/mm3 (0.84-5.20); LYMPHOCYTES PERCENT AUTO 8 % (21-46); MONOCYTES ABSOLUTE AUTO 1.52 K/mm3 (0.16-1.47); MONOCYTES PERCENT AUTO 7 % (4-13); Mean Corpuscular HGB 29.7 pg (26.0-34.0); Mean Corpuscular Volume 88 fL (80-100); Mean Platelet Volume 10.9 fL (9.1-12.4); NEUTROPHILS ABSOLUTE AUTO 17.89 K/mm3 (1.96-9.15); NEUTROPHILS PERCENT AUTO 84 % (41-73); Platelet Count 360 K/mm3 (150-400); RDW Standard Deviation 41.4 fL (35.1-46.3); Red Blood Cell Count 3.67 M/mm3 (4.30-5.90)
[2022-10-18 12:41] LABS: Albumin, Blood 2.4 g/dL (3.4-5.0); Albumin/Globulin Ratio 0.4 (0.8-1.8); Bilirubin, Total 0.9 mg/dL (0.1-1.0); Bun/Creatinine Ratio 24.2 (12.0-20.0); Creatinine, Blood 1.98 mg/dL (0.60-1.20); Globulin, Blood 5.5 g/dL (2.2-4.0); Magnesium, Blood 1.7 mg/dL (1.6-2.4); Potassium, Blood 4.3 mmol/L (3.5-5.5); Total Protein, Blood 7.9 g/dL (6.4-8.2)
--- NOTE | 2022-10-18 16:04 | NUR ---
PT BROUGHT FROM ER TO DAY SURGERY FOR PROCEDURE.
--- NOTE | 2022-10-18 16:09 | NUR ---
PT HAS 20G IV TO RIGHT WRIST THAT FLUSHES WELL AND FLOWS TO GRAVITY.
[2022-10-18] MEDS ORDERED: Insulin Glargine-Yfg SC (16:17)
[2022-10-18] MEDS ORDERED: ASPI81CH PO (16:18)
[2022-10-18] MEDS ORDERED: ATORVASTATIN CA80 M1 PO (16:19)
[2022-10-18] MEDS ORDERED: Alphagan P5 ML BOTHEYES (16:20)
[2022-10-18] MEDS ORDERED: STEGLATRO5 MG PO (16:21)
[2022-10-18] MEDS ORDERED: GABA300 PO (16:22)
[2022-10-18] MEDS ORDERED: GLIP10ER PO (16:23)
[2022-10-18] MEDS ORDERED: HYDCHL50 PO (16:24)
[2022-10-18] MEDS ORDERED: Novolog Flexpen SC (16:25)
[2022-10-18] MEDS ORDERED: Glucophage 500 mg PO (16:27)
[2022-10-18] MEDS ORDERED: BETIMOL BOTHEYES (16:28)
[2022-10-18] MEDS ORDERED: Diovan160 MG PO (16:29)
--- NOTE | 2022-10-18 16:35 | NUR ---
PT ACCIDENTALLY PULLED OUT IV.
--- NOTE | 2022-10-18 20:30 | NUR ---
PT ARRIVED TO ROOM FROM PACU. PT DROWSY, RESPONDS TO VERBAL STIMULI. HR TACHY 1'TEENS, PT DENIES CP/PRESSURE. 2LO2 NC [address] POST OP. SKIN WARM, PT SWEATY, REP FEELING HOT. WOUND VAC TO LLE INTACT, SX AT 120MM. PT DENIES PAIN. PT ORIENTED TO ROOM/CALL LIGHT. WILL MONITOR AND TX PER ORDERS
[2022-10-19 04:55] LABS: Hematocrit 28.6 % (37.0-53.0); Hemoglobin 9.3 g/dL (13.5-17.5); Mean Corpuscular HGB 29.3 pg (26.0-34.0); Mean Corpuscular HGB Conc 32.5 g/dL (31.5-36.5); Mean Corpuscular Volume 90 fL (80-100); Mean Platelet Volume 10.6 fL (9.1-12.4); Platelet Count 410 K/mm3 (150-400); RDW Coefficient Variation 13.2 % (11.7-14.2); RDW Standard Deviation 44.3 fL (35.1-46.3); Red Blood Cell Count 3.17 M/mm3 (4.30-5.90); White Blood Cell Count 18.92 K/mm3 (4.00-11.30)
--- NOTE | 2022-10-19 07:27 | NUR ---
POD 1 S/P LEFT BKA. PT VSS T/O NIGHT, HR TRENDING 80'S THIS AM. SATS >90% ON RA. WOUND VAC TO LLE DRAINING CLOUDY SS DRNG. SEAL AND SX INTACT. PT DENIED PAIN, CAP REFILL WNL. PT PRACHI REG PO, DENIED N/V. PT UNABLE TO VOID, BLADDER SCAN READ >940, STRAIGHT CATH DONE X1 DRAINED 1000ML MARTÍNEZ URINE. PT REPOSITIONING SELF IN BED, PLAN TO MOBILIZE W/PT.
[2022-10-19 09:16] LABS: Test Name GLUCOSE
--- NOTE | 2022-10-19 09:54 | NUR ---
>500 POC GLUCOSE POC GLUCOSE DRAWN AT 0729 WHICH CAME BACK WITH >500, LAB CONTACTED TO DRAW FOR VERIFICATION, PT TREATED PER CURRENT CORRECTION SCALE DUE TO LAB MACHINE BEING DOWN AND UNABLE TO PROCESS THE SAMPLE. POC GLUCOSE RECHECKED AT 0936 WHICH AGAIN SHOWS >500, PROVIDER NOTIFIED AND ORDERS OBTAINED FOR ADDITIONAL INSULIN AND FLUIDS WITH RECHECK BEFORE LUNCH. WILL CTM
[2022-10-19 13:20] LABS: Result SEE SEPERATE REPORT
[2022-10-19 14:08] LABS: Glucose, Blood 507 mg/dL (70-99)
[2022-10-19 17:17] LABS: Albumin, Blood 1.9 g/dL (3.4-5.0); Albumin/Globulin Ratio 0.4 (0.8-1.8); Bilirubin, Total 0.5 mg/dL (0.1-1.0); Bun/Creatinine Ratio 18.5 (12.0-20.0); Calcium, Blood 8.4 mg/dL (8.5-10.1); Creatinine, Blood 3.02 mg/dL (0.60-1.20); Globulin, Blood 5.1 g/dL (2.2-4.0)
--- NOTE | 2022-10-20 03:09 | NUR ---
0309 HOURS: THIS RN ASSUMED CARE OF THIS PT AT APPROXIMATELY 0309.
[2022-10-20 05:06] LABS: Hematocrit 29.5 % (37.0-53.0); Hemoglobin 9.8 g/dL (13.5-17.5); Mean Corpuscular HGB 29.3 pg (26.0-34.0); Mean Corpuscular HGB Conc 33.2 g/dL (31.5-36.5); Mean Corpuscular Volume 88 fL (80-100); Mean Platelet Volume 10.6 fL (9.1-12.4); Platelet Count 458 K/mm3 (150-400); RDW Coefficient Variation 13.4 % (11.7-14.2); RDW Standard Deviation 43.3 fL (35.1-46.3); Red Blood Cell Count 3.35 M/mm3 (4.30-5.90); White Blood Cell Count 24.07 K/mm3 (4.00-11.30)
[2022-10-20 05:37] LABS: Albumin, Blood 1.7 g/dL (3.4-5.0); Albumin/Globulin Ratio 0.4 (0.8-1.8); Bilirubin, Total 0.3 mg/dL (0.1-1.0); Bun/Creatinine Ratio 15.9 (12.0-20.0); Creatinine, Blood 4.41 mg/dL (0.60-1.20); Globulin, Blood 4.4 g/dL (2.2-4.0); Potassium, Blood 4.4 mmol/L (3.5-5.5); Total Protein, Blood 6.1 g/dL (6.4-8.2)
--- NOTE | 2022-10-20 05:49 | NUR ---
SHIFT SUMMARY: ASSUMED CARE OF THIS PT AT APPROXIMATELY 0309 FROM [facility]. PODx2 L BKA. PT WAS VERY PLESANT. WOUND VAC REMAINS IN PLACE ON RLE. COMPRESSION NOTED WITHIN TUBING AND SUCTION ON AND SET TO 120. PT LIMB ELEVATED. PER REPORT, PT HAS REMAINED NPO SINCE MIDNIGHT IN PREPARATION FOR I&D TODAY. PT REPORTED SLIGHT DIFFICULTY URINATING AT ONE POINT IN THE SHIFT BUT THAT HAS SINCE RESOLVED AND PT WAS ABLE TO VOID. RESTING AT THIS TIME. WILL GIVE REPORT TO DAY TIME RN.
--- NOTE | 2022-10-20 12:33 | NUR ---
PT HERE FROM PCU VIA KAVITHA. WOUND VAC ON LEFT BKA, POWER GLIDE IN RIGHT UPPER ARM. History, Chart, Medications and Allergies reviewed before start of procedure.Pre-Op teaching done. Pt verbalizes understanding.
--- NOTE | 2022-10-20 13:19 | NUR ---
10/20/22 1319 Bibi Eller ZOSYN 3.75MG GIVEN IN PREOP NO VTE PROPHYLAXIS PER
--- NOTE | 2022-10-20 13:58 | NUR ---
PT TO OR AT ABOUT 1120
--- NOTE | 2022-10-20 18:21 | NUR ---
PT WOULD LIKE HIS WALLET LEFT WITH SECURITY. SECURITY CALLED IN ROOM AT THIS TIME
--- NOTE | 2022-10-20 19:07 | NUR ---
POST OP/SUMMARY: REPORT RECEIVED FROM HAIR CUTTER, PT TO UNIT AT 1450. VSS, DROWSY AND ORIENTED. AWAKENS TO VOICE. SURGICAL SITE WNL, STUMP SOCK IN PLACE. PT REPORTS NO NEW N/T, POPLITEAL PULSE TO L LEG +2. PT ABLE TO EAT DINNER, REPORTED MINIMAL PAIN AND GIVEN TYLENOL. PT SEEMED A LITTLE CONFUSED TONIGHT. OBI RN HAD ROUNDED ON PT AND HE WAS AT SITTING AT THE EDGE OF BED STATING HE WANTED TO GET TO CHAIR WITHOUT HAVING CALLED STAFF. PT REMINDED OF CALL LIGHT AND CALLING FOR HELP. BED ALARM SET. NOC RN MADE AWARE OF THIS. NO ACUTE SAFETY CONCERNS.
[2022-10-21 03:51] LABS: Source, Urine Clean Catch
[2022-10-21 04:32] LABS: Creatinine, Urine Random 30.1 mg/dL (27.00-270.00); Protein, Urine Random 82.8 mg/dL (0.0-11.9)
[2022-10-21 04:52] LABS: Hematocrit 26.5 % (37.0-53.0); Hemoglobin 8.9 g/dL (13.5-17.5); Mean Corpuscular HGB 29.1 pg (26.0-34.0); Mean Corpuscular HGB Conc 33.6 g/dL (31.5-36.5); Mean Corpuscular Volume 87 fL (80-100); Mean Platelet Volume 10.7 fL (9.1-12.4); Platelet Count 435 K/mm3 (150-400); RDW Coefficient Variation 13.5 % (11.7-14.2); Red Blood Cell Count 3.06 M/mm3 (4.30-5.90); White Blood Cell Count 16.69 K/mm3 (4.00-11.30)
[2022-10-21 05:09] LABS: Albumin, Blood 1.7 g/dL (3.4-5.0); Anion Gap 10 mmol/L (6-16); Blood Urea Nitrogen 75 mg/dL (8-24); Bun/Creatinine Ratio 15.8 (12.0-20.0); CO2, Blood 20 mmol/L (21-32); Calcium, Blood 8.2 mg/dL (8.5-10.1); Chloride, Blood 101 mmol/L (98-108); Creatinine, Blood 4.75 mg/dL (0.60-1.20); Glomerular Filtration Rate 14 (60-); Glucose, Blood 387 mg/dL (70-99); Phosphorus, Blood 5.9 mg/dL (2.5-4.9); Potassium, Blood 5.2 mmol/L (3.5-5.5); Sodium, Blood 131 mmol/L (136-145)
--- NOTE | 2022-10-21 05:29 | NUR ---
SHIFT SUMMARY PT ALERT, RESPONDS TO QUESTIONS APPROPRIATELY. NO ACUTE CHANGES. PT DID NOT NEED PAIN COVERAGE THIS SHIFT. ABLE TO REPOSITION SELF TO DANGLE POSITION AND USE URINAL TO VOID. TOLERATING PO INTAKE. TAMMY-WRAP C/D/I. STUMP SOCK IN PLACE. NEW POWERGLIDE PLACED IN LEFT UPPER ARM. HAD ZOOM CONSULT WITH DR. AZEVEDO. CALL LIGHT WITHIN REACH.
[2022-10-21 05:40] LABS: Appearance, Urine Clear (Clear); Bilirubin, Urine Neg (Neg); Blood, Urine 1+ (Neg); Color, Urine Yellow (P-Yellow); Glucose Qualitative, Urine Neg (Neg); Ketones, Urine Neg (Neg); Leukocyte Esterase, Urine Neg (Neg); Nitrite, Urine Neg (Neg); Protein, Urine Neg (Neg); Specific Gravity, Urine 1.015 (1.003-1.022); Urobilinogen, Urine NORM (Normal)
[2022-10-21 05:41] LABS: Bacteria Few /hpf; Red Blood Cells, Urine 0-2 /hpf (0-2); Squamous Epithelial Cells Rare /hpf (Few); White Blood Cells, Urine 0-2 /hpf (0-5)
[2022-10-21 05:42] LABS: Amorphous Light (0-Heavy)
[2022-10-21 05:44] LABS: Eosinophils-Raw #,Urine 0
[2022-10-21 05:45] LABS: White Blood Cells Urine 0-2 /hpf (0-5)
--- NOTE | 2022-10-21 18:27 | NUR ---
SHIFT SUMMARY PT A&OX4, VSS/RA, CBGS COV PER EMAR, PRACHI PO, VOIDING WELL/URINAL, REPOSITIONS SELF WELL, DENIED NEED FOR PAIN MEDICATION, PWRGLIDE ENRIQUE, IV SL/ABX PER EMAR. DR ROBERTO CARLOS CLARKE APPT WITH PT APPROX 1800. S/P L BKA, DRESSING CHANGED TODAY, ELEVATED ON BLANKETS. WILL REPORT TO ONCOMING NOC RN.
--- NOTE | 2022-10-21 18:31 | NUR ---
ASSISTED PT WITH REPOSITIONING IN BED. PT VOIDED WITH URINAL.
--- NOTE | 2022-10-22 06:28 | NUR ---
SHIFT SUMMARY PT A&OX4, AND COOPERATIVE WITH CARE. NO ACUTE CHANGES, VSS. MEDICATED ONCE FOR PAIN. CHANGED ABD DRESSING ON STUMP ONCE, LIGHT DRAINAGE. TOLERATING PO INTAKE. VOIDING WITH URINAL. ABLE TO REPOSITION SELF IN BED. CALLS APPROPRIATELY, CALL LIGHT WITHIN REACH.
[2022-10-22 06:48] LABS: Albumin, Blood 2.1 g/dL (3.4-5.0); Anion Gap 7 mmol/L (6-16); Blood Urea Nitrogen 61 mg/dL (8-24); Bun/Creatinine Ratio 20.5 (12.0-20.0); CO2, Blood 22 mmol/L (21-32); Calcium, Blood 8.6 mg/dL (8.5-10.1); Chloride, Blood 108 mmol/L (98-108); Creatinine, Blood 2.97 mg/dL (0.60-1.20); Glomerular Filtration Rate 24 (60-); Glucose, Blood 306 mg/dL (70-99); Phosphorus, Blood 4.1 mg/dL (2.5-4.9); Potassium, Blood 4.4 mmol/L (3.5-5.5); Sodium, Blood 137 mmol/L (136-145)
--- NOTE | 2022-10-22 11:28 | NUR ---
DRESSING CHANGED, ELEVATED ON PILLOW
--- NOTE | 2022-10-22 17:53 | NUR ---
SHIFT SUMMARY PT A&OX4, VSS/RA, CBGS COV PER EMAR, PRACHI PO, VOIDING WELL/URINAL, 24H URINE STARTED 10/21/222029 AND WILL END TONIGHT 2029, REPOSITIONS SELF WELL, DENIED NEED FOR PAIN MEDICATION, PWRGLIDE ENRIQUE, IV SL/ABX PER EMAR. S/P L BKA, DRESSING CHANGED TODAY, ELEVATED ON BLANKETS. WILL REPORT TO ONCOMING NOC RN.
[2022-10-23 04:56] LABS: BASOPHILS ABSOLUTE AUTO 0.08 K/mm3 (0.00-0.23); BASOPHILS PERCENT AUTO 1 % (0-2); EOSINOPHILS PERCENT AUTO 2 % (0-6); Hematocrit 30.6 % (37.0-53.0); IMMATURE GRAN ABSOLUTE AUTO 0.31 K/mm3 (0.00-0.10); IMMATURE GRAN PERCENT AUTO 2 % (0-1); LYMPHOCYTES ABSOLUTE AUTO 3.36 K/mm3 (0.84-5.20); LYMPHOCYTES PERCENT AUTO 22 % (21-46); MONOCYTES ABSOLUTE AUTO 0.92 K/mm3 (0.16-1.47); MONOCYTES PERCENT AUTO 6 % (4-13); Mean Corpuscular HGB Conc 32.7 g/dL (31.5-36.5); Mean Corpuscular Volume 89 fL (80-100); Mean Platelet Volume 11.1 fL (9.1-12.4); NEUTROPHILS ABSOLUTE AUTO 10.32 K/mm3 (1.96-9.15); NEUTROPHILS PERCENT AUTO 68 % (41-73); Platelet Count 494 K/mm3 (150-400); RDW Coefficient Variation 13.9 % (11.7-14.2); Red Blood Cell Count 3.45 M/mm3 (4.30-5.90); White Blood Cell Count 15.29 K/mm3 (4.00-11.30)
[2022-10-23 05:17] LABS: Albumin, Blood 2.3 g/dL (3.4-5.0); Anion Gap 6 mmol/L (6-16); Blood Urea Nitrogen 41 mg/dL (8-24); Bun/Creatinine Ratio 21.6 (12.0-20.0); CO2, Blood 24 mmol/L (21-32); Calcium, Blood 9.4 mg/dL (8.5-10.1); Chloride, Blood 105 mmol/L (98-108); Glomerular Filtration Rate 41 (60-); Glucose, Blood 291 mg/dL (70-99); Phosphorus, Blood 3.5 mg/dL (2.5-4.9); Potassium, Blood 4.8 mmol/L (3.5-5.5); Sodium, Blood 135 mmol/L (136-145)
--- NOTE | 2022-10-23 05:28 | NUR ---
SHIFT SUMMARY PT A&OX4, AND COOPERATIVE WITH CARE. NO ACUTE CHANGES. TOLERATING PO INTAKE. 24HR URINE COMPLETED AT 202910/22/22 AND GIVEN TO LAB. VOIDING WITH BEDSIDE URINAL. REPOSITIONS SELF IN BED. PT DID NOT NEED PAIN COVERAGE THIS SHIFT. ABD DRESSING TO STUMP CHANGED, STUMP STOCK IN PLACE. CALLS APPROPRIATELY, CALL LIGHT WITHIN REACH.
--- NOTE | 2022-10-23 16:46 | NUR ---
SHIFT SUMMARY POD 3 REVISION OF L BKA PT AA0X4, TRANSFERS WELL WITH 1 ASSIST/SBA. CALLS APPROPRIATLY, GOOD STRENGTH IN UPPER EXTREMETIES. DRESSING TO LEFT STUMP CHANGED X1 TODAY. INCISION FREE FROM REDNESS OR SWELLING. PT AWAITING DISCHARGE BACK TO HOME FACILITY.
--- NOTE | 2022-10-24 04:49 | NUR ---
SHIFT SUMMARY PT A&OX4, COOPERATIVE WITH CARE. NO ACUTE CHANGES, VSS. PT RESTED MAJORITY OF SHIFT, DID NOT NEED PAIN COVERAGE. TOLERATING PO INTAKE. USING BEDSIDE URINAL TO VOID. ABD DRESSING TO LEFT STUMP CHANGED ONCE, SCANT DRAINAGE. CALLS APPROPRIATELY, CALL LIGHT WITHIN REACH.
[2022-10-24 08:31] LABS: Albumin, Blood 2.3 g/dL (3.4-5.0); Anion Gap 4 mmol/L (6-16); Blood Urea Nitrogen 31 mg/dL (8-24); Bun/Creatinine Ratio 21.5 (12.0-20.0); CO2, Blood 26 mmol/L (21-32); Calcium, Blood 9.1 mg/dL (8.5-10.1); Chloride, Blood 104 mmol/L (98-108); Creatinine, Blood 1.44 mg/dL (0.60-1.20); Glomerular Filtration Rate 57 (60-); Glucose, Blood 251 mg/dL (70-99); Phosphorus, Blood 3.6 mg/dL (2.5-4.9); Potassium, Blood 4.7 mmol/L (3.5-5.5); Sodium, Blood 134 mmol/L (136-145)
--- NOTE | 2022-10-24 17:13 | NUR ---
SHIFT SUMMARY POD 6 LBKA, POD 4 REVISION AA0X4, PT DENIES PAIN DURING SHIFT. HE HAS REMAINED INDEPENDENT WITH TRANSFERS NEEDING ASSISTANCE TO MOVE THINGS CLOSE BY. DRESSING REMAINS UNCHANGED TO STUMP SINCE BEGINNING OF SHIFT. PT REPORTS FEELING VERY EXCITED TO GO HOME.
--- NOTE | 2022-10-24 21:43 | NUR ---
BLOOD SUGAR-323 DR. OLMSTEAD NOTIFIED OF PT BLOOD SUGAR THIS EVENING OF 323. NOTIFIED HER THAT PT RECEIVED 50 UNITS OF LANTUS AROUND DINNERTIME. RECEIVED ORDER TO GIVE 8 UNITS OF HUMALOG X1.
--- NOTE | 2022-10-25 04:18 | NUR ---
SHIFT SUMMARY PT HAS SLEPT MOST OF THE NIGHT, PAIN OVERALL TO LLE HAS BEEN WELL CONTROLLED, ONLY MEDICATED X1 FOR PAIN. DRESSING IS INTACT TO LLE. PT NEEDED ADDITIONAL COVERAGE FOR A BG OF 323 THIS SHIFT. ASSESSMENT OTHERWISE UNCHANGED. PLANS ARE FOR DISCHARE TODAY. BED IN LOWEST POSITION, CALL LIGHT WITHIN REACH.
[2022-10-25 08:12] LABS: Albumin, Blood 2.4 g/dL (3.4-5.0); Anion Gap 5 mmol/L (6-16); Blood Urea Nitrogen 28 mg/dL (8-24); Bun/Creatinine Ratio 24.6 (12.0-20.0); CO2, Blood 25 mmol/L (21-32); Chloride, Blood 105 mmol/L (98-108); Creatinine, Blood 1.14 mg/dL (0.60-1.20); Glomerular Filtration Rate 75 (60-); Glucose, Blood 227 mg/dL (70-99); Phosphorus, Blood 4.1 mg/dL (2.5-4.9); Potassium, Blood 4.7 mmol/L (3.5-5.5); Sodium, Blood 135 mmol/L (136-145)
--- NOTE | 2022-10-25 09:45 | NUR ---
AM NOTE: PATIENT ALERT AND ORIENTED. RIGHT EYE BLINDNESS, WEARING EYE PATCH. STATES HE HAS SOME N/T TO LEFT STUMP. RIGHT STUMP PROSTHESIS. USING SLIDE BOARD TO TRANSFER. ON ROOM AIR SATING ABOVE 95%. LUNGS SOUNDING CLEAR AND DIM IN BASES. DENIES COUGH. NO TELE. BP STABLE. NO EDEMA NOTED. RADIAL PULSES STRONG. DENIES CHEST PAIN/PRESSURE. EATING AND VOIDING WNL. USING URINAL. ACHS BLOOD SUGAR CHECKS. PATIENT ABLE TO SIT UP AND MOVE AROUND IN BED IND. LEFT STUMP DRESSING C/D/I. PATIENT DENIES PAIN. LIVES AT [facility]. CALL LIGHT IN REACH. DENIES NEEDS AT THIS TIME.
[2022-10-25 13:12] LABS: A/G RATIO 0.6 (0.7-1.7); ALBUMIN 2.2 g/dL (2.9-4.4); ALPHA-1-GLOBULIN 0.5 g/dL (0.0-0.4); ALPHA-2-GLOBULIN 1.4 g/dL (0.4-1.0); BETA GLOBULIN 0.8 g/dL (0.7-1.3); GAMMA GLOBULIN 0.8 g/dL (0.4-1.8); GLOBULIN, TOTAL 3.5 g/dL (2.2-3.9); M-SPIKE Not Observed g/dL (Not Observed); PROTEIN, TOTAL, SERUM 5.7 g/dL (6.0-8.5)
[2022-10-25] MEDS ORDERED: BASAGLAR K100 UNIT/1 SC (14:14)
--- NOTE | 2022-10-25 16:36 | NUR ---
DISCHARGE: NO ACUTE CHANGES. PATIENT DISCHARGE WNL. DISCHARGE INSTRUCTIONS REVIEWED WITH PATIENT. NEW DOSE CHANGE TO INSULIN GLARGINE, MEDICATIONS HE WILL BE STOPPING, F/U APPOINTMENTS WITH PCP AND ORTHO, AND SIGNS AND SYMPTOMS TO RETURN/CALL PCP FOR. PATIENT RETURING TO [facility]. THIS RN CALLED [facility] FOR REPORT, NO RN AVAILIBLE AT TIME FOR REPORT. VESSEL MANAGER CALLED THIS RN AND STATED [facility] CALLED VESSEL MANAGER BACK AND RN STATED SHE DID NOT NEED REPORT FROM [place], RN RECEIVED UPDATE FROM VESSEL MANAGER. PATIENT TOOK ALL PERSONAL BELONGINGS, INCLUDING RIGHT PROSTHESIS, SLIDE BOARD, DRESSING CHANGE ITEMS, AND ALL OTHER PERSONAL ITEMS. COPY OF DISCHARGE MED LIST AND DISCHARGE PRINTED FOR [facility].POWERGLIDE REMOVED WNL. PATIENT ABLE TO TRANSFER SELF USING SLIDE BOARD TO WHEELCHAIR.
== END 2022-10-25 15:57 | disposition home or self-care (01) | DRG 853 ==
LOC: ER 11:46 → MEDS 15:07 → SURS 15:07
PROVIDERS: Emergency Medicine; Internal Medicine; Internal Medicine Nephrology; Orthopaedic Surgery; ADMIT Internal Medicine
PROC: 0Y6J0Z2 Detachment at Left Lower Leg, Mid, Open Approach (ICD-10-PCS; 2022-10-18)
PROC: 3E03329 Introduction of Other Anti-infective into Peripheral Vein, Percutaneous Approach (ICD-10-PCS; principal; 2022-10-18 12:15)
PROC: 0Y6J0Z2 Detachment at Left Lower Leg, Mid, Open Approach (ICD-10-PCS; 2022-10-20)
DX: A40.8 Other streptococcal sepsis (principal); A48.0 Gas gangrene; M72.6 Necrotizing fasciitis; E11.52 Type 2 diabetes mellitus with diabetic peripheral angiopathy with gangrene; N17.9 Acute kidney failure, unspecified; L03.116 Cellulitis of left lower limb; L02.416 Cutaneous abscess of left lower limb; E87.1 Hypo-osmolality and hyponatremia; M86.8X7 Other osteomyelitis, ankle and foot; R65.20 Severe sepsis without septic shock; Z28.21 Immunization not carried out because of patient refusal; I12.9 Hypertensive chronic kidney disease with stage 1 through stage 4 chronic kidney disease, or unspecified chronic kidney disease; N18.32 Chronic kidney disease, stage 3b; E11.22 Type 2 diabetes mellitus with diabetic chronic kidney disease; E11.65 Type 2 diabetes mellitus with hyperglycemia; E11.40 Type 2 diabetes mellitus with diabetic neuropathy, unspecified; E11.621 Type 2 diabetes mellitus with foot ulcer; E78.00 Pure hypercholesterolemia, unspecified; L97.529 Non-pressure chronic ulcer of other part of left foot with unspecified severity; M54.50 Low back pain, unspecified; G89.29 Other chronic pain; F17.210 Nicotine dependence, cigarettes, uncomplicated; H40.9 Unspecified glaucoma; E55.9 Vitamin D deficiency, unspecified; Z89.422 Acquired absence of other left toe(s); Z89.511 Acquired absence of right leg below knee; Z98.890 Other specified postprocedural states; Z79.4 Long term (current) use of insulin; Z79.82 Long term (current) use of aspirin; Z79.899 Other long term (current) drug therapy
CPT/HCPCS: 36415; 51701; 73552; 73590; 73630; 73701; 76770; 80048; 80053; 80069; 81001; 81050; 82306; 82570; 82947; 83605; 83735; 84156; 84165; 85025; 85027; 87040; 87070; 87075; 87077; 87147; 87205; 88307; 93005; 93010; 94760; 96361; 96365-59; 96375-59; 97110; 97162; 97530; 99285-25; A9270; C1751; J0295; J0330; J1100; J1650; J1815; J2250; J2270; J2370; J2405; J2543; J2704; J3010; J3370; J7030; J7040; J7050; J7120; Q9967

== ENCOUNTER 2022-10-25 21:35 | Emergency (ER) | payer OTHER ==
[~2022-10-25] VITALS: Ht 106.7 cm; Wt 104.3 kg
[~2022-10-25 21:35] MED LIST changes: +ATORVASTATIN CA80 M1 PO; +Alphagan P5 ML BOTHEYES; +BASAGLAR K100 UNIT/1 SC; +BETIMOL BOTHEYES; +Diovan160 MG PO; +GLIP10ER PO; +Glucophage 500 mg PO; +HYDCHL50 PO; +Insulin Glargine-Yfg SC; +Novolog Flexpen SC; +STEGLATRO5 MG PO
== END 2022-10-25 23:15 | disposition home or self-care (01) ==
LOC: ER 21:35
DX: Z48.01 Encounter for change or removal of surgical wound dressing (principal); E11.9 Type 2 diabetes mellitus without complications; I10 Essential (primary) hypertension; F17.200 Nicotine dependence, unspecified, uncomplicated; Z79.82 Long term (current) use of aspirin; Z79.4 Long term (current) use of insulin; Z79.899 Other long term (current) drug therapy
CPT/HCPCS: 99283

== ENCOUNTER 2023-09-01 13:55 | Emergency (ER) | payer OTHER ==
[~2023-09-01] VITALS: Ht 157.5 cm; Wt 99.8 kg
[~2023-09-01 13:55] MED LIST changes: +AMOCLA875 PO
[2023-09-01 13:56] VITALS: BP 124/80
[2023-09-01 14:52] LABS: Influenza A, PCR NEGATIVE (NEGATIVE); Influenza B, PCR NEGATIVE (NEGATIVE); Resp Syncytial Virus, PCR NEGATIVE (NEGATIVE); SARS-Cov-2 (COVID-19) PCR, MMC NEGATIVE (NEGATIVE)
== END 2023-09-01 16:00 | disposition home or self-care (01) ==
LOC: ER 13:55
PROVIDERS: Student in an Organized Health Care Education/Training Program
DX: J02.9 Acute pharyngitis, unspecified (principal); E11.40 Type 2 diabetes mellitus with diabetic neuropathy, unspecified; I10 Essential (primary) hypertension; E78.00 Pure hypercholesterolemia, unspecified; Z79.82 Long term (current) use of aspirin; Z79.4 Long term (current) use of insulin; Z79.899 Other long term (current) drug therapy; Z87.891 Personal history of nicotine dependence
CPT/HCPCS: 0241U; 99283; A9270

== ENCOUNTER → 2025-05-19 | Outpatient (CLI) | payer OTHER ==
[~2025-05-19] MED LIST changes: +ACET500 PO; +BISA10S PR; +CODACE30 PO; +Calcium Carbon500 MG PO; +Glipizide Xl2.5 MG PO; +LOPE2C; +MIRALAX17 GM PO; +NOVOLOG FL100 UNIT/3 SC; +Percocet 5-3251 EACH PO; +TIMO.5OPSO RIGHTEYE
[2025-05-19 13:16] LABS: BASOPHILS ABSOLUTE AUTO 0.06 K/mm3 (0.00-0.23); BASOPHILS PERCENT AUTO 1 % (0-2); EOSINOPHILS ABSOLUTE AUTO 0.55 K/mm3 (0.00-0.68); EOSINOPHILS PERCENT AUTO 6 % (0-6); Hematocrit 40.8 % (37.0-53.0); Hemoglobin 13.3 g/dL (13.5-17.5); IMMATURE GRAN ABSOLUTE AUTO 0.02 K/mm3 (0.00-0.10); IMMATURE GRAN PERCENT AUTO 0 % (0-1); LYMPHOCYTES ABSOLUTE AUTO 3.03 K/mm3 (0.84-5.20); LYMPHOCYTES PERCENT AUTO 32 % (21-46); MONOCYTES ABSOLUTE AUTO 0.71 K/mm3 (0.16-1.47); MONOCYTES PERCENT AUTO 7 % (4-13); Mean Corpuscular HGB Conc 32.6 g/dL (31.5-36.5); Mean Corpuscular Volume 91 fL (80-100); NEUTROPHILS ABSOLUTE AUTO 5.23 K/mm3 (1.96-9.15); NEUTROPHILS PERCENT AUTO 55 % (41-73); NRBC ABSOLUTE 0.00 K/mm3 (0.00-0.02); NRBC Auto 0.0 /100 WBC (0.0-0.2); Platelet Count 152 K/mm3 (150-400); RDW Coefficient Variation 13.2 % (11.7-14.2); RDW Standard Deviation 43.6 fL (35.1-46.3)
[2025-05-19 13:21] LABS: Alanine Aminotransfer (ALT/SGP 47 U/L (12-78); Albumin, Blood 3.8 g/dL (3.4-5.0); Albumin/Globulin Ratio 1.0 (0.8-1.8); Anion Gap 12 mmol/L (3-11); Aspartate Aminotrans (AST/SGOT 22 U/L (12-37); Bilirubin, Total 0.4 mg/dL (0.1-1.0); Blood Urea Nitrogen 44 mg/dL (8-24); CHOL/HDL RATIO 6.0; CO2, Blood 22 mmol/L (21-32); Calcium, Blood 9.9 mg/dL (8.5-10.1); Chloride, Blood 106 mmol/L (98-108); Cholesterol 174 mg/dL (50-200); Creatinine, Blood 1.22 mg/dL (0.60-1.20); Globulin, Blood 3.9 g/dL (2.2-4.0); Glucose, Blood 341 mg/dL (70-99); HDL Cholesterol 29 mg/dL (>39); LDL/HDL RATIO Unable to Calculate; Low Density Lipoprotein Chol Unable to Calculate mg/dL (0-110); Potassium, Blood 5.1 mmol/L (3.5-5.5); Sodium, Blood 135 mmol/L (136-145); Total Protein, Blood 7.7 g/dL (6.4-8.2); Triglycerides 527 mg/dL (30-160); Very Low Density Lipoprot Chol Unable to Calculate mg/dL (6-32)
== END | disposition home or self-care (01) ==
LOC: LAB SHORT 08:00 → LAB 08:00
PROVIDERS: Student in an Organized Health Care Education/Training Program
DX: E11.51 Type 2 diabetes mellitus with diabetic peripheral angiopathy without gangrene (principal); E11.40 Type 2 diabetes mellitus with diabetic neuropathy, unspecified; E11.29 Type 2 diabetes mellitus with other diabetic kidney complication; I10 Essential (primary) hypertension; E78.2 Mixed hyperlipidemia
CPT/HCPCS: 80053; 80061; 85025